=== PATIENT | male | born 1950 | race Hispanic/Latino ===

== ENCOUNTER → 2018-08-22 | Outpatient (CLI) | payer BC ==
[~2018-08-22] MED LIST: ACET250T28 PO; AEC81 PO; AMLO10TA7 PO; ATOR40TA71 PO; COLE1TAB2 PO; DIPH1TAB PO; DOXA2TAB2 PO; ELUX100T PO; FLUT15.88 NS; FURO20TA6 PO; FURO40TA5 PO; GLIP5TAB11 PO; INSLAN SQ; MECO10002 SL; MEGE40L PO; METF-446 PO; METO-408 PO; MULT-1203 PO; ONDA4TAB9 PO; PIND10TA2 PO; POTA99TA21 PO; Prasugrel Hcl PO
== END | disposition home or self-care (01) ==
LOC: RAH 13:10
PROVIDERS: ATTEND Internal Medicine
DX: R09.89 Other specified symptoms and signs involving the circulatory and respiratory systems (principal)
CPT/HCPCS: 93880

== ENCOUNTER → 2019-05-22 | Outpatient (CLI) | payer MEDICARE ==
[~2019-05-22] MED LIST changes: +AMLO2.5T4 PO; +CLON0.1T PO; +FLUT15.845 NS; -FLUT15.88 NS; +HYDR-4154 PO; +LABE200T5 PO; +MINO2.5T3 PO; +OLME40TA18 PO; +ONDA-104 PO; -ONDA4TAB9 PO
== END | disposition home or self-care (01) ==
LOC: RAH 16:37
PROVIDERS: ATTEND Internal Medicine
DX: M47.814 Spondylosis without myelopathy or radiculopathy, thoracic region (principal); M47.817 Spondylosis without myelopathy or radiculopathy, lumbosacral region; M41.87 Other forms of scoliosis, lumbosacral region; M43.17 Spondylolisthesis, lumbosacral region
CPT/HCPCS: 72070; 72100

== ENCOUNTER 2019-05-25 16:31 | Inpatient (IN) | payer MEDICARE ==
[~2019-05-25] VITALS: Ht 172.7 cm; Wt 112.1 kg
[~2019-05-25 16:31] MED LIST changes: -AMLO2.5T4 PO; -CLON0.1T PO; -HYDR-4154 PO; -LABE200T5 PO; -MINO2.5T3 PO; -OLME40TA18 PO
[2019-05-25 17:29] LABS: HEMATOCRIT 31.7 % (42-54); LYMPHOCYTES % (AUTO) 16.8 % (21.0-51.0); MEAN CORPUSCULAR HEMOGLOBIN 28.4 pg (27.0-33.0); MEAN CORPUSCULAR HGB CONC 32.8 g/dL (32.0-36.0); MEAN CORPUSCULAR VOLUME 86.6 fL (79-99); MONOCYTES % (AUTO) 4.5 % (3.0-13.0); NEUTROPHILS % (AUTO) 76.5 % (40.0-77.0); PLATELET COUNT (AUTO) 258 K/uL (130-400); RED BLOOD CELL COUNT(AUTO) 3.66 MIL/uL (4.50-6.20); RED CELL DISTRIBUTION WIDTH 14.8 % (11.0-15.5); WHITE BLOOD COUNT (AUTO) 5.1 K/uL (4.8-10.8)
[2019-05-25 17:47] LABS: CREATININE 1.1 mg/dL (0.5-1.5); POTASSIUM 3.8 mmol/L (3.5-5.1)
[2019-05-25 17:50] LABS: PARTIAL THROMBOPLASTIN TIME 27.1 SEC (26.3-35.5); PROTHROMBIN TIME 10.5 SEC (9.6-11.6)
[2019-05-25 17:52] LABS: ALBUMIN 3.2 g/dL (3.5-5.0); BILIRUBIN,TOTAL 0.3 mg/dL (0.2-1.0); TOTAL PROTEIN, SERUM 6.7 g/dL (6.0-8.3)
[2019-05-25] MEDS ORDERED: IOHEXOL-350 75 ML VIAL IV ONE (18:01)
[2019-05-25 18:57] LABS: APPEARANCE,URINE Clear (CLEAR); BILIRUBIN,URINE Negative (NEGATIVE); COLOR,URINE Yellow (YELLOW); GLUCOSE, URINE (UA) 500 mg/dL (NEGATIVE); KETONES,URINE Negative (NEGATIVE); LEUKOCYTE ESTERASE ,URINE Negative (NEGATIVE); NITRATE,URINE Negative (NEGATIVE); OCCULT BLOOD,URINE Negative (NEGATIVE); PH,URINE 7.5 (5.0-8.0); PROTEIN,URINE POS 1+ mg/dL (NEGATIVE)
[2019-05-25 19:45] LABS: BACTERIA,URINE Few /HPF (None Seen); MUCUS,URINE Few LPF (None Seen); SQUAMOUS EPITHELIAL CELL,UR 0-2 /HPF (0-2)
[2019-05-25] MEDS ORDERED: KETOROLAC TROMETHAMINE 15MG/ML ONE (19:49)
[2019-05-25] MEDS ORDERED: NITROGLYCERIN 1GM/1 INCH PACKET TD ONE (20:12)
[2019-05-25] MEDS ORDERED: ASPIRIN 325 MG TABLET ONE (20:12)
[2019-05-25] MEDS ORDERED: ONDANSETRON HCL 4 MG/2 ML VIAL IVP PRN (21:15)
[2019-05-25] MEDS ORDERED: NITROGLYCERIN 0.4 MG SL TAB SL PRN (21:15)
[2019-05-25] MEDS: SODIUM CHLORIDE 0.9% 1000ML 1,000 ML IV SCH (21:30)
[2019-05-25] MEDS ORDERED: SODIUM CHLORIDE 0.9% 1000ML 1,000 ML IV ONE (21:41)
[2019-05-25] MEDS ORDERED: MORPHINE SULFATE 2 MG/ML 1ML SYG ONE (22:07)
[2019-05-25 22:30] VITALS: BP 190/92
[2019-05-26] VITALS (7 sets, daily range): BP systolic 127–188; BP diastolic 67–94
[2019-05-26] MEDS: HYDRALAZINE HCL 20 MG/ML VIAL IV PRN ×2 (00:28→07:30)
[2019-05-26] MEDS: MORPHINE SULFATE 2 MG/ML 1ML SYG IVP PRN ×4 (04:15→20:31)
[2019-05-26 05:16] LABS: BASOPHILS % (AUTO) 0.5 % (0.0-5.0); EOSINOPHILS % (AUTO) 0.2 % (0.0-8.0); HEMATOCRIT 30.1 % (42-54); LYMPHOCYTES % (AUTO) 20.9 % (21.0-51.0); MEAN CORPUSCULAR HEMOGLOBIN 28.8 pg (27.0-33.0); MEAN CORPUSCULAR HGB CONC 33.6 g/dL (32.0-36.0); MEAN CORPUSCULAR VOLUME 85.8 fL (79-99); MONOCYTES % (AUTO) 6.4 % (3.0-13.0); NEUTROPHILS % (AUTO) 71.7 % (40.0-77.0); PLATELET COUNT (AUTO) 258 K/uL (130-400); RED BLOOD CELL COUNT(AUTO) 3.51 MIL/uL (4.50-6.20); RED CELL DISTRIBUTION WIDTH 14.8 % (11.0-15.5); WHITE BLOOD COUNT (AUTO) 6.1 K/uL (4.8-10.8)
[2019-05-26 05:25] LABS: HEMOGLOBIN A1C 7.5 % (4.0-6.0)
[2019-05-26 06:03] LABS: ALBUMIN 2.9 g/dL (3.5-5.0); BILIRUBIN,TOTAL 0.4 mg/dL (0.2-1.0); POTASSIUM 3.4 mmol/L (3.5-5.1); THYROID STIMULATING HORMONE 0.5 uIU/mL (0.36-3.74); TOTAL PROTEIN, SERUM 6.1 g/dL (6.0-8.3)
[2019-05-26] MEDS: INSULIN HUMULIN R 100 UNIT/ML 3ML SQ SCH ×4 (07:30→21:00)
[2019-05-26] MEDS ORDERED: ACETAMINOPHEN 325 MG TAB PO PRN (08:00)
[2019-05-26] MEDS: FAMOTIDINE/PF 20 MG/2 ML VIAL IV SCH ×2 (08:45→20:30)
[2019-05-26] MEDS: ENOXAPARIN SODIUM 30 MG/0.3 ML SQ SCH (08:46)
[2019-05-26] MEDS ORDERED: FAMOTIDINE/PF 20 MG/2 ML VIAL IV SCH (09:00)
[2019-05-26] MEDS ORDERED: ASPIRIN 81MG TAB.CHEW PO SCH (09:00)
[2019-05-26] MEDS ORDERED: AMLODIPINE BESYLATE 5 MG TAB PO SCH (10:00)
--- NOTE | 2019-05-26 10:15 | NUR ---
i have given pt amlodpine 10mg for bp of 201/98; i spoke to dr willis and showed him pt's home med list and he gave me verbal order for the amlodpine;
[2019-05-26] MEDS ORDERED: AMLO2.5T4 PO (10:18)
[2019-05-26] MEDS ORDERED: OLME40TA18 PO (10:18)
[2019-05-26] MEDS ORDERED: HYDR-4154 PO (10:18)
[2019-05-26] MEDS ORDERED: LABE200T5 PO (10:18)
[2019-05-26] MEDS ORDERED: MINO2.5T3 PO (10:18)
[2019-05-26] MEDS ORDERED: CLON0.1T PO (10:21)
--- NOTE | 2019-05-26 10:26 | NUR ---
pt's here now with home med information; i have gone through the list of home meds and updated it with his current home med information.
[2019-05-26] MEDS ORDERED: LIDOCAINE HCL-MPF 1% 2ML VIAL IV PRN (11:00)
[2019-05-26] MEDS ORDERED: POTASSIUM CHLORIDE 10% ELIXIR 20 MEQ/15 ML UDCUP PO PRN (11:00)
[2019-05-26] MEDS ORDERED: POTASSIUM CHLORIDE 20MEQ/100ML 100 ML IV PRN (11:00)
[2019-05-26] MEDS ORDERED: LORAZEPAM 2 MG/ML 1 ML VIAL IVP SCH (11:15)
[2019-05-26] MEDS: HYDRALAZINE HCL 25 MG TABLET PO SCH ×2 (12:52→20:31)
--- NOTE | 2019-05-26 12:52 | NUR ---
pt's bp 190/95, pt took his own home meds for his bp; will recheck in an hour
[2019-05-26] MEDS: FLUTICASONE PROPIONATE 50MCG/SPRAY 16 GM BOTTLE EN SCH (14:00)
[2019-05-26] MEDS: POTASSIUM CHLORIDE 20 MEQ ERTAB PO PRN (16:51)
--- NOTE | 2019-05-26 17:34 | NUR ---
Initial Assessment Patient lives with spouse. No home services. DME: BPM, glucometer (no insulin), cane, CPAP. Patient is able to complete ADL's independently and drives. PCP is Dr. Herrera. [facility]acy is [facility] in [place]. DCP is home Addendum: 05/26/19 at 1739 by HOA GALLEGOS SS Amended: Links added.
[2019-05-26] MEDS: MINOXIDIL 2.5 MG TAB PO SCH (20:31)
[2019-05-26] MEDS: AMLODIPINE BESYLATE 2.5 MG TAB PO SCH (20:31)
[2019-05-26] MEDS: ATORVASTATIN CALCIUM 40 MG TABLET PO SCH (20:31)
[2019-05-27 00:08] VITALS: BP 147/69
[2019-05-27] MEDS: SODIUM CHLORIDE 0.9% 1000ML 1,000 ML IV SCH ×2 (01:07→13:30)
[2019-05-27] MEDS: MORPHINE SULFATE 2 MG/ML 1ML SYG IVP PRN ×5 (01:08→22:34)
[2019-05-27 03:48] LABS: BASOPHILS % (AUTO) 1.3 % (0.0-5.0); EOSINOPHILS % (AUTO) 2.1 % (0.0-8.0); HEMATOCRIT 29.9 % (42-54); LYMPHOCYTES % (AUTO) 24.4 % (21.0-51.0); MEAN CORPUSCULAR HEMOGLOBIN 28.6 pg (27.0-33.0); MEAN CORPUSCULAR HGB CONC 32.8 g/dL (32.0-36.0); MEAN CORPUSCULAR VOLUME 87.2 fL (79-99); MONOCYTES % (AUTO) 8.4 % (3.0-13.0); NEUTROPHILS % (AUTO) 63.4 % (40.0-77.0); PLATELET COUNT (AUTO) 220 K/uL (130-400); RED BLOOD CELL COUNT(AUTO) 3.43 MIL/uL (4.50-6.20); RED CELL DISTRIBUTION WIDTH 14.7 % (11.0-15.5); WHITE BLOOD COUNT (AUTO) 5.4 K/uL (4.8-10.8)
[2019-05-27 04:08] VITALS: BP 149/71
[2019-05-27 04:27] LABS: POTASSIUM 3.3 mmol/L (3.5-5.1)
[2019-05-27] MEDS: POTASSIUM CHLORIDE 20 MEQ ERTAB PO PRN ×2 (04:36→08:47)
[2019-05-27] MEDS: INSULIN HUMULIN R 100 UNIT/ML 3ML SQ SCH ×4 (05:37→20:43)
[2019-05-27 07:42] VITALS: BP 179/79
[2019-05-27] MEDS: ENOXAPARIN SODIUM 30 MG/0.3 ML SQ SCH (08:44)
[2019-05-27] MEDS: FAMOTIDINE/PF 20 MG/2 ML VIAL IV SCH ×2 (08:44→20:49)
[2019-05-27] MEDS: MULTIVITAMIN TABLET PO SCH (08:45)
[2019-05-27] MEDS: ASPIRIN 81 MG EC TAB PO SCH (08:45)
[2019-05-27] MEDS: AMLODIPINE BESYLATE 2.5 MG TAB PO SCH ×2 (08:45→20:50)
[2019-05-27] MEDS: ATORVASTATIN CALCIUM 40 MG TABLET PO SCH ×2 (08:45→20:50)
[2019-05-27] MEDS: DOXAZOSIN MESYLATE 2 MG TABLET PO SCH (08:46)
[2019-05-27] MEDS: HYDRALAZINE HCL 25 MG TABLET PO SCH ×3 (08:46→20:50)
[2019-05-27] MEDS: FLUTICASONE PROPIONATE 50MCG/SPRAY 16 GM BOTTLE EN SCH (08:56)
[2019-05-27] MEDS: MINOXIDIL 2.5 MG TAB PO SCH ×2 (08:56→20:50)
[2019-05-27] MEDS ORDERED: LABETALOL HCL 200 MG TABLET PO SCH ×3 (09:00→21:00)
[2019-05-27 11:12] VITALS: BP 133/66
--- NOTE | 2019-05-27 13:04 | NUR ---
I HAVE SPOKEN TO DR OVIEDO ON THE PHONE AND INFORMED OF PT GOING INTO A-FIB, ORDERS RECEIVED TO INCREASE HIS LABETOLOL TO BID AND GIVE A NOW DOSE.
[2019-05-27] MEDS: TRAMADOL HCL 50 MG TABLET PO PRN (15:19)
[2019-05-27 16:09] VITALS: BP 115/52
[2019-05-27] MEDS ORDERED: MAGNESIUM HYDROXIDE 30 ML/UDCUP PO PRN (17:00)
--- NOTE | 2019-05-27 18:45 | NUR ---
IT WAS REPORTED TO ME THAT PT HAD A 12 SEC. PAUSE, I WENT TO ROOM AND PT DID SAY HE HAD FELT LIGHT HEADED, I DID A PAUL PULSE RATE AND HEART RATE WAS 50; DR MCKNIGHT WAS ON THE FLOOR ROUNDING AND I SPOKE TO HIM AND SHOWED HIM TELE STRIP; HE TALKED TO PATIENT THEN STATED TO GO AHEAD AND TRANSFER PT TO ICU AND HAVE AN EXTERNAL PACER PLACED ON PATIENT; ELEVATOR REPAIR MECHANIC WAS CALLED AND SHE STATED THERE WAS SOME PT'S MOVING OUT OF UNIT INTO PCCU AND SHE WOULD THEN MOVE THE PATIENT TO ICU; I HAVE GIVEN REPORT TO NIGHT NURSE HOUSTON AND HE IS GOING TO FOLLOW UP ON THIS.
[2019-05-27 20:12] VITALS: BP 142/67
[2019-05-27] MEDS: DOCUSATE SODIUM 100 MG CAP PO SCH (20:50)
[2019-05-27] MEDS: SENNOSIDES 8.6 MG TABLET PO SCH (20:51)
[2019-05-28] VITALS (23 sets, daily range): BP systolic 136–184; BP diastolic 57–94
--- NOTE | 2019-05-28 03:45 | NUR ---
TRANSFER PATIENT TRANSFERRED TO ROOM 216 IN ICU PER MD ORDERS REPORT GIVEN TO ZOEY RINCON. ALL BELONGINGS AND PAPER WORK TAKEN WITH PATIENT.
[2019-05-28] MEDS: SODIUM CHLORIDE 0.9% 1000ML 1,000 ML IV SCH (03:50)
--- NOTE | 2019-05-28 03:51 | NUR ---
RECEIVED FROM ROOM 401 VIA BED. AA&OX3. NO DISTRESS NOTED. DENIES PAIN AND DISCOMFORT AT THIS TIME. DENIES DIZZINESS. INITIATED BEDSIDE MONITORING SINUS BRADYCARDIA WITH HEART RATE 59 BPM. NS 50ML/HR INFUSING WELL VIA PIV RIGHT ARM. BILATERAL LOWER EXTREMITIES WITH SCD'S. INSTRUCTED ON PLAN OF CARE. FIELD RESEARCH ASSISTANT HERE FOR VENIPUNCTURE BLOOD SAMPLE FOR AM LABS ORDERED.
[2019-05-28 04:01] LABS: BASOPHILS % (AUTO) 1.1 % (0.0-5.0); LYMPHOCYTES % (AUTO) 23.6 % (21.0-51.0); MEAN CORPUSCULAR HEMOGLOBIN 28.2 pg (27.0-33.0); MEAN CORPUSCULAR HGB CONC 32.3 g/dL (32.0-36.0); MEAN CORPUSCULAR VOLUME 87.2 fL (79-99); MONOCYTES % (AUTO) 8.2 % (3.0-13.0); NEUTROPHILS % (AUTO) 63.7 % (40.0-77.0); PLATELET COUNT (AUTO) 220 K/uL (130-400); RED BLOOD CELL COUNT(AUTO) 3.44 MIL/uL (4.50-6.20); RED CELL DISTRIBUTION WIDTH 14.6 % (11.0-15.5); WHITE BLOOD COUNT (AUTO) 5.3 K/uL (4.8-10.8)
[2019-05-28 04:22] LABS: POTASSIUM 3.6 mmol/L (3.5-5.1)
[2019-05-28] MEDS: MORPHINE SULFATE 2 MG/ML 1ML SYG IVP PRN ×4 (04:42→20:40)
[2019-05-28] MEDS: POTASSIUM CHLORIDE 20 MEQ ERTAB PO PRN ×2 (04:50→09:20)
[2019-05-28] MEDS: HYDRALAZINE HCL 20 MG/ML VIAL IV PRN ×3 (06:20→23:50)
[2019-05-28] MEDS: INSULIN HUMULIN R 100 UNIT/ML 3ML SQ SCH ×4 (06:21→21:00)
[2019-05-28] MEDS: TRAMADOL HCL 50 MG TABLET PO PRN ×2 (06:37→16:55)
[2019-05-28] MEDS: MULTIVITAMIN TABLET PO SCH (08:26)
[2019-05-28] MEDS: DOXAZOSIN MESYLATE 2 MG TABLET PO SCH (08:26)
[2019-05-28] MEDS: AMLODIPINE BESYLATE 2.5 MG TAB PO SCH ×2 (08:26→20:46)
[2019-05-28] MEDS: SENNOSIDES 8.6 MG TABLET PO SCH ×2 (08:27→20:41)
[2019-05-28] MEDS: HYDRALAZINE HCL 25 MG TABLET PO SCH ×3 (08:27→20:46)
[2019-05-28] MEDS: ATORVASTATIN CALCIUM 40 MG TABLET PO SCH ×2 (08:27→20:41)
[2019-05-28] MEDS: DOCUSATE SODIUM 100 MG CAP PO SCH ×2 (08:27→20:41)
[2019-05-28] MEDS: ASPIRIN 81 MG EC TAB PO SCH (08:28)
[2019-05-28] MEDS: FAMOTIDINE/PF 20 MG/2 ML VIAL IV SCH ×2 (08:28→20:41)
[2019-05-28] MEDS: ENOXAPARIN SODIUM 30 MG/0.3 ML SQ SCH (08:38)
[2019-05-28] MEDS: MINOXIDIL 2.5 MG TAB PO SCH ×2 (08:39→20:51)
[2019-05-28] MEDS: CLONIDINE HCL 0.1 MG TABLET PO PRN (09:30)
[2019-05-28] MEDS: FLUTICASONE PROPIONATE 50MCG/SPRAY 16 GM BOTTLE EN SCH (09:39)
[2019-05-28] MEDS ORDERED: APIXABAN 5 MG TABLET PO SCH (21:00)
[2019-05-28] MEDS ORDERED: HYDROMORPHONE 1 MG/1 ML AMP IVP ONE (23:00)
[2019-05-29] VITALS (44 sets, daily range): BP systolic 118–196; BP diastolic 45–108
[2019-05-29] MEDS: SODIUM CHLORIDE 0.9% 1000ML 1,000 ML IV SCH ×2 (01:11→16:41)
[2019-05-29] MEDS: CLONIDINE HCL 0.1 MG TABLET PO PRN (01:50)
[2019-05-29 04:53] LABS: BASOPHILS % (AUTO) 0.8 % (0.0-5.0); EOSINOPHILS % (AUTO) 2.7 % (0.0-8.0); HEMATOCRIT 31.6 % (42-54); LYMPHOCYTES % (AUTO) 17.1 % (21.0-51.0); MEAN CORPUSCULAR HEMOGLOBIN 28.3 pg (27.0-33.0); MEAN CORPUSCULAR HGB CONC 32.3 g/dL (32.0-36.0); MEAN CORPUSCULAR VOLUME 87.5 fL (79-99); MONOCYTES % (AUTO) 8.7 % (3.0-13.0); NEUTROPHILS % (AUTO) 70.2 % (40.0-77.0); PLATELET COUNT (AUTO) 224 K/uL (130-400); RED BLOOD CELL COUNT(AUTO) 3.61 MIL/uL (4.50-6.20); RED CELL DISTRIBUTION WIDTH 14.5 % (11.0-15.5); WHITE BLOOD COUNT (AUTO) 6.6 K/uL (4.8-10.8)
[2019-05-29 05:25] LABS: CARBON DIOXIDE 28 mmol/L (21-32); CHLORIDE 104 mmol/L (101-111); CREATININE 0.8 mg/dL (0.5-1.5); GLOMERULAR FILTR. RATE CALC 102 mL/min (>60); GLUCOSE,RANDOM 118 mg/dL (70-105); PHOSPHORUS 3.3 mg/dL (2.5-4.9); POTASSIUM 4.2 mmol/L (3.5-5.1); SODIUM SERUM 139 mmol/L (136-145); THYROID STIMULATING HORMONE 2.06 uIU/mL (0.36-3.74); UREA NITROGEN, BLOOD 16 mg/dL (7-18)
[2019-05-29] MEDS: MORPHINE SULFATE 2 MG/ML 1ML SYG IVP PRN ×2 (05:28→08:48)
[2019-05-29] MEDS ORDERED: NITROGLYCERIN 50 MG/D5% WATER 250 BOT IV SCH (05:30)
[2019-05-29] MEDS: INSULIN HUMULIN R 100 UNIT/ML 3ML SQ SCH ×4 (06:11→21:12)
[2019-05-29] MEDS: LUBIPROSTONE 24 MCG CAP PO SCH ×2 (08:32→16:40)
[2019-05-29] MEDS: ASPIRIN 81 MG EC TAB PO SCH (08:32)
[2019-05-29] MEDS: HYDRALAZINE HCL 25 MG TABLET PO SCH ×3 (08:32→21:15)
[2019-05-29] MEDS: AMLODIPINE BESYLATE 2.5 MG TAB PO SCH ×2 (08:32→20:17)
[2019-05-29] MEDS: FAMOTIDINE/PF 20 MG/2 ML VIAL IV SCH ×2 (08:33→20:15)
[2019-05-29] MEDS: DOXAZOSIN MESYLATE 2 MG TABLET PO SCH (08:33)
[2019-05-29] MEDS: SENNOSIDES 8.6 MG TABLET PO SCH ×2 (08:33→20:13)
[2019-05-29] MEDS: MINOXIDIL 2.5 MG TAB PO SCH ×2 (08:33→20:17)
[2019-05-29] MEDS: DOCUSATE SODIUM 100 MG CAP PO SCH ×2 (08:33→20:13)
[2019-05-29] MEDS: ATORVASTATIN CALCIUM 40 MG TABLET PO SCH ×2 (08:33→20:13)
[2019-05-29] MEDS: MULTIVITAMIN TABLET PO SCH (08:33)
[2019-05-29] MEDS: FLUTICASONE PROPIONATE 50MCG/SPRAY 16 GM BOTTLE EN SCH (08:37)
[2019-05-29] MEDS ORDERED: VANCOMYCIN 500MG+NS 100ML 100 ML IV SCH (09:45)
[2019-05-29] MEDS ORDERED: HYDROMORPHONE 1 MG/1 ML AMP IVP SCH (10:15)
[2019-05-29] MEDS ORDERED: VANCOMYCIN 1.5 GM in SODIUM CHLORIDE 0.9% 250 ML IV SCH (10:29)
[2019-05-29] MEDS: PREGABALIN 75 MG CAPSULE PO SCH ×3 (10:31→21:16)
[2019-05-29] MEDS: DEXAMETHASONE SOD PHOSPHATE 4 MG/ML 1ML VIAL IVP SCH ×3 (10:31→22:36)
[2019-05-29] MEDS: BACLOFEN 10 MG TABLET PO SCH ×3 (10:31→21:16)
[2019-05-29] MEDS ORDERED: COMPOUND IV REFRIGERATED 1 EACH IVSOLN MISC PRN (10:45)
--- NOTE | 2019-05-29 11:00 | NUR ---
Dr Hernandez notified at this time that patient is wanting a second opinion before getting PPM; plan of care discussed with patient; orders for PPM today will be cancelled. Dr Okeefe also notified of patient's desire for second opinion on PPM insertion.
[2019-05-29] MEDS: LIDOCAINE 5% TOPICAL PATCH TP SCH (11:45)
[2019-05-29] MEDS: HYDRALAZINE HCL 20 MG/ML VIAL IV PRN (13:51)
--- NOTE | 2019-05-29 17:15 | NUR ---
Patient having heart rate in low 100s; asymptomatic, no fever, no pain at this time; reported to Dr Okeefe, who stated he would come in later to check on patient.
[2019-05-29] MEDS: HYDROCODONE/ACETAMINOPHEN 5/325 MG TAB PO PRN (17:43)
[2019-05-30] VITALS (26 sets, daily range): BP systolic 91–173; BP diastolic 33–92
[2019-05-30] MEDS: DEXAMETHASONE SOD PHOSPHATE 4 MG/ML 1ML VIAL IVP SCH ×3 (05:55→21:30)
[2019-05-30] MEDS: INSULIN HUMULIN R 100 UNIT/ML 3ML SQ SCH ×4 (06:16→21:33)
--- NOTE | 2019-05-30 07:00 | NUR ---
PATIENT RECEIVED IN BED, AAOX3, NO ACUTE DISTRESS NOTED. PER REPORT, PATIENT IS WANTING TO GET A SECOND OPINION IN REGARDS TO HAVING A PACEMAKER PER DR. MIXON'S RECOMMENDATIONS. TELE WITH SR 80. INSTRUCTED TO CALL FOR ASSISTANCE IF NEEDED, VOICED UNDERSTANDING. CALL PANCHAL IS WITHIN REACH, WILL CONT TO MONITOR CLOSELY.
--- NOTE | 2019-05-30 08:24 | NUR ---
MD ROUNDS DR. OVIEDO IN TO SEE PATIENT. MD SPOKE WITH PATIENT. NEW ORDERS RECEIVED TO BE CARRIED OUT. POSSIBLE DISCHARGE TODAY. FOLLOW UP ORDERS GIVEN BY DR. OVIEDO. WILL AWAIT FOR PRIMARY MD TO EVALUATE PATIENT.
[2019-05-30] MEDS: ASPIRIN 81 MG EC TAB PO SCH (08:38)
[2019-05-30] MEDS: DOXAZOSIN MESYLATE 2 MG TABLET PO SCH (08:38)
[2019-05-30] MEDS: MULTIVITAMIN TABLET PO SCH (08:38)
[2019-05-30] MEDS: HYDRALAZINE HCL 25 MG TABLET PO SCH ×2 (08:38→13:57)
[2019-05-30] MEDS: LUBIPROSTONE 24 MCG CAP PO SCH ×2 (08:38→15:56)
[2019-05-30] MEDS: DOCUSATE SODIUM 100 MG CAP PO SCH ×2 (08:39→21:25)
[2019-05-30] MEDS: SENNOSIDES 8.6 MG TABLET PO SCH ×2 (08:39→21:25)
[2019-05-30] MEDS: PREGABALIN 75 MG CAPSULE PO SCH ×3 (08:39→21:25)
[2019-05-30] MEDS: BACLOFEN 10 MG TABLET PO SCH ×3 (08:39→21:26)
[2019-05-30] MEDS: AMLODIPINE BESYLATE 2.5 MG TAB PO SCH ×2 (08:39→23:22)
[2019-05-30] MEDS: ATORVASTATIN CALCIUM 40 MG TABLET PO SCH ×2 (08:39→21:26)
[2019-05-30] MEDS: MINOXIDIL 2.5 MG TAB PO SCH ×3 (08:39→21:00)
[2019-05-30] MEDS: FAMOTIDINE/PF 20 MG/2 ML VIAL IV SCH ×2 (09:34→21:27)
[2019-05-30] MEDS: HYDROCODONE/ACETAMINOPHEN 5/325 MG TAB PO PRN (09:38)
[2019-05-30] MEDS: LIDOCAINE 5% TOPICAL PATCH TP SCH (11:42)
--- NOTE | 2019-05-30 14:10 | NUR ---
Nutrition Intervention: Nutrition screen based on LOS x 5 days. Pt. on 75gm CCD diet with fair p.o. intake. Pt. states needs smaller meals daily due to Hx of Gastric sleeve. Labs reviewed(BG 106, HgbA1c 7.5%, Alb 2.9). SR-18, elastic. LBM: 05/29/2019. BMI: 36.8, Obesity Grade 2. Pt. educated on Diabetic diet and provided with education material. Pt. verbalized understanding. Recommendations: 1) Rec. 6 small meals 75gm CCD Heart Healthy diet. 2) Diabetic diet education given to patient. 3) Continue to monitor pt's nutritional status. 4) Consult RD as nutrition concerns arise. Addendum: 05/30/19 at [address] Amended: Links added. Addendum: 05/30/19 at [address] Nutrition Intervention: Nutrition screen based on LOS x 5 days. Pt. on 75gm CCD diet with fair p.o. intake. Pt. states needs smaller meals daily due to Hx of Gastric sleeve. Spoke with pt. regarding nutritional supplementation and pt. agreed to try. Labs reviewed(BG 106, HgbA1c 7.5%, Alb 2.9). SR-18, elastic. LBM: 05/29/2019. BMI: 36.8, Obesity Grade 2. Pt. educated on Diabetic diet and provided with education material. Pt. verbalized understanding. Recommendations: 1) Rec. 6 small meals 75gm CCD Heart Healthy diet. 2) Rec. Glucerna supp. QD with dinner meal. 3) Diabetic diet education given to patient. 4) Continue to monitor pt's nutritional status. 5) Consult RD as nutrition concerns arise.
[2019-05-30] MEDS: FLUTICASONE PROPIONATE 50MCG/SPRAY 16 GM BOTTLE EN SCH (21:43)
[2019-05-31] VITALS (17 sets, daily range): BP systolic 94–154; BP diastolic 44–75
[2019-05-31] MEDS: HYDRALAZINE HCL 25 MG TABLET PO SCH ×4 (00:30→20:49)
[2019-05-31 04:52] LABS: HEMATOCRIT 29.6 % (42-54); LYMPHOCYTES % (AUTO) 7.8 % (21.0-51.0); MEAN CORPUSCULAR HEMOGLOBIN 28.7 pg (27.0-33.0); MEAN CORPUSCULAR HGB CONC 33.4 g/dL (32.0-36.0); MEAN CORPUSCULAR VOLUME 85.8 fL (79-99); NEUTROPHILS % (AUTO) 86.8 % (40.0-77.0); PLATELET COUNT (AUTO) 259 K/uL (130-400); RED BLOOD CELL COUNT(AUTO) 3.45 MIL/uL (4.50-6.20); RED CELL DISTRIBUTION WIDTH 14.8 % (11.0-15.5); WHITE BLOOD COUNT (AUTO) 8.1 K/uL (4.8-10.8)
[2019-05-31] MEDS: HYDROCODONE/ACETAMINOPHEN 5/325 MG TAB PO PRN ×3 (04:52→17:57)
[2019-05-31 05:10] LABS: B-TYPE NATRIURETIC PEPTIDE 16 pg/mL (0-100); CREATININE 1.6 mg/dL (0.5-1.5); MAGNESIUM 2.1 mg/dL (1.80-2.40); POTASSIUM 4.3 mmol/L (3.5-5.1)
[2019-05-31] MEDS: DEXAMETHASONE SOD PHOSPHATE 4 MG/ML 1ML VIAL IVP SCH ×3 (06:06→22:00)
[2019-05-31] MEDS: INSULIN HUMULIN R 100 UNIT/ML 3ML SQ SCH ×4 (06:38→22:00)
[2019-05-31] MEDS: FAMOTIDINE/PF 20 MG/2 ML VIAL IV SCH ×2 (08:06→20:49)
[2019-05-31] MEDS: ASPIRIN 81 MG EC TAB PO SCH (08:07)
[2019-05-31] MEDS: PREGABALIN 75 MG CAPSULE PO SCH ×3 (08:07→20:49)
[2019-05-31] MEDS: MINOXIDIL 2.5 MG TAB PO SCH ×2 (08:08→20:50)
[2019-05-31] MEDS: SENNOSIDES 8.6 MG TABLET PO SCH ×2 (08:08→20:48)
[2019-05-31] MEDS: BACLOFEN 10 MG TABLET PO SCH ×3 (08:08→20:49)
[2019-05-31] MEDS: MULTIVITAMIN TABLET PO SCH (08:08)
[2019-05-31] MEDS: DOCUSATE SODIUM 100 MG CAP PO SCH ×2 (08:08→20:48)
[2019-05-31] MEDS: ATORVASTATIN CALCIUM 40 MG TABLET PO SCH ×2 (08:09→20:49)
[2019-05-31] MEDS: DOXAZOSIN MESYLATE 2 MG TABLET PO SCH (08:09)
--- NOTE | 2019-05-31 08:19 | NUR ---
PT RECEIVED IN BED AAOX3, NO ACUTE DISTRESS NOTED. TELE WITH SR 80. POC DISCUSSED WITH PATIENT. PLAN FOR POSSIBLE DISCHARGE TODAY. DURING MORNING MEDICATIONS, PATIENT STATES HE WILL TAKE MINOXIDIL 2.5 MG PO AND NOT THE 10 MG PRESCRIBED YESTERDAY BY DR. OVIEDO. I INSTRUCTED HIM HIS BLOOD PRESSURE WAS IN THE 178 SYSTOLIC YESTERDAY AND TODAY IT IS 130s SYSTOLIC AFTER STARTING THE 10 MG DOSE. PRIMARY MD TO BE MADE AWARE. WILL CONT TO MONITOR CLOSELY. CALL PANCHAL IS WITHIN REACH.
[2019-05-31] MEDS: FLUTICASONE PROPIONATE 50MCG/SPRAY 16 GM BOTTLE EN SCH (09:00)
[2019-05-31] MEDS: AMLODIPINE BESYLATE 2.5 MG TAB PO SCH ×2 (09:01→20:49)
[2019-05-31] MEDS: LUBIPROSTONE 24 MCG CAP PO SCH ×2 (09:02→16:49)
--- NOTE | 2019-05-31 12:33 | NUR ---
MD ROUNDS DR. ZENDEJAS IN TO SEE PATIENT. MD SPOKE WITH PATIENT REGARDING BACK PAIN. I INFORMED DR. ZENDEJAS PT ONLY TOOK 2.5MG OF MINOXIDIL THIS AM. PER DR. ZENDEJAS, INSTRUCTED TO NOTIFY DR. OVIEDO. PT HAS BEEN DOWNGRADED TO PCCU STATUS.
--- NOTE | 2019-05-31 14:42 | NUR ---
SPOKE WITH DR. OVIEDO, INFORMED HIM PATIENT DOES NOT WANT TO TAKE THE FULL PRESCRIBED DOSE OF MINOXIDIL 10 MG PO. INSTEAD HE TOOK MINOXIDIL 2.5 MG PO. INFORMED PATIENT HAS NOT YET BEEN DISCHARGED. INSTRUCTED TO NOTIFY DR. MARK BRAVO IF PATIENT REMAINS IN HOSPITAL ON SUNDAY. INSTRUCTED TO HAVE PATIENT SIGN REFUSAL FORM FOR MINOXIDIL.
[2019-05-31] MEDS: LIDOCAINE 5% TOPICAL PATCH TP SCH (15:41)
--- NOTE | 2019-05-31 16:15 | NUR ---
PATIENT TRANSFERRED TO ROOM 224, SPOUSE COLLECTED ALL BELONGINGS. REPORT GIVEN TO RAIN RINCON.
[2019-05-31] MEDS ORDERED: HYDROCODONE/ACETAMINOPHEN 5/325 MG TAB PO PRN ×2 (21:15)
[2019-06-01] VITALS (7 sets, daily range): BP systolic 93–153; BP diastolic 54–68
[2019-06-01 04:36] LABS: HEMATOCRIT 28.4 % (42-54); MEAN CORPUSCULAR HEMOGLOBIN 28.2 pg (27.0-33.0); MEAN CORPUSCULAR HGB CONC 32.7 g/dL (32.0-36.0); MEAN CORPUSCULAR VOLUME 86.1 fL (79-99); PLATELET COUNT (AUTO) 248 K/uL (130-400); RED CELL DISTRIBUTION WIDTH 14.8 % (11.0-15.5); WHITE BLOOD COUNT (AUTO) 7.8 K/uL (4.8-10.8)
[2019-06-01 05:14] LABS: CREATININE 1.7 mg/dL (0.5-1.5); CRP QUANTITATIVE 4.3 mg/L (0.00-9.0); MAGNESIUM 2.2 mg/dL (1.80-2.40); PHOSPHORUS 3.9 mg/dL (2.5-4.9); POTASSIUM 3.8 mmol/L (3.5-5.1)
[2019-06-01 05:22] LABS: B-TYPE NATRIURETIC PEPTIDE 8 pg/mL (0-100)
[2019-06-01 05:36] LABS: ERYTHROCYTE SEDIMENTATION RATE 9 MM/HR (0-20)
[2019-06-01] MEDS: INSULIN HUMULIN R 100 UNIT/ML 3ML SQ SCH ×4 (06:19→21:00)
[2019-06-01] MEDS: DEXAMETHASONE SOD PHOSPHATE 4 MG/ML 1ML VIAL IVP SCH ×4 (06:19→22:30)
[2019-06-01] MEDS: LIDOCAINE 5% TOPICAL PATCH TP SCH (09:38)
[2019-06-01] MEDS: DOXAZOSIN MESYLATE 2 MG TABLET PO SCH (09:39)
[2019-06-01] MEDS: HYDRALAZINE HCL 25 MG TABLET PO SCH ×3 (09:42→20:31)
[2019-06-01] MEDS: ATORVASTATIN CALCIUM 40 MG TABLET PO SCH ×2 (09:43→20:30)
[2019-06-01] MEDS: MULTIVITAMIN TABLET PO SCH (09:43)
[2019-06-01] MEDS: ASPIRIN 81 MG EC TAB PO SCH (09:43)
[2019-06-01] MEDS: DOCUSATE SODIUM 100 MG CAP PO SCH ×2 (09:43→20:30)
[2019-06-01] MEDS: LUBIPROSTONE 24 MCG CAP PO SCH ×2 (09:43→18:08)
[2019-06-01] MEDS: AMLODIPINE BESYLATE 2.5 MG TAB PO SCH ×2 (09:44→20:31)
[2019-06-01] MEDS: PREGABALIN 75 MG CAPSULE PO SCH ×3 (09:44→20:30)
[2019-06-01] MEDS: SENNOSIDES 8.6 MG TABLET PO SCH ×2 (09:44→20:30)
[2019-06-01] MEDS: MINOXIDIL 2.5 MG TAB PO SCH ×2 (09:45→20:32)
[2019-06-01] MEDS: FAMOTIDINE/PF 20 MG/2 ML VIAL IV SCH ×2 (09:45→20:29)
[2019-06-01] MEDS: BACLOFEN 10 MG TABLET PO SCH ×4 (09:46→22:30)
[2019-06-01] MEDS: FLUTICASONE PROPIONATE 50MCG/SPRAY 16 GM BOTTLE EN SCH (09:46)
--- NOTE | 2019-06-01 15:04 | NUR ---
hydralazine held due to blood pressure being 93/55
[2019-06-02] VITALS (8 sets, daily range): BP systolic 10–156; BP diastolic 57–84
[2019-06-02 04:14] LABS: HEMATOCRIT 31.2 % (42-54); MEAN CORPUSCULAR HEMOGLOBIN 28.5 pg (27.0-33.0); MEAN CORPUSCULAR HGB CONC 33.3 g/dL (32.0-36.0); MEAN CORPUSCULAR VOLUME 85.5 fL (79-99); PLATELET COUNT (AUTO) 243 K/uL (130-400); RED BLOOD CELL COUNT(AUTO) 3.65 MIL/uL (4.50-6.20); RED CELL DISTRIBUTION WIDTH 14.5 % (11.0-15.5)
[2019-06-02 04:39] LABS: CREATININE 1.3 mg/dL (0.5-1.5); MAGNESIUM 2.3 mg/dL (1.80-2.40); PHOSPHORUS 3.5 mg/dL (2.5-4.9)
[2019-06-02 04:56] LABS: B-TYPE NATRIURETIC PEPTIDE 10 pg/mL (0-100)
[2019-06-02] MEDS: HYDROCODONE/ACETAMINOPHEN 5/325 MG TAB PO PRN ×2 (05:41→14:37)
[2019-06-02] MEDS: INSULIN HUMULIN R 100 UNIT/ML 3ML SQ SCH ×4 (05:59→22:19)
[2019-06-02] MEDS: DOCUSATE SODIUM 100 MG CAP PO SCH ×2 (08:31→22:04)
[2019-06-02] MEDS: SENNOSIDES 8.6 MG TABLET PO SCH ×2 (08:31→22:04)
[2019-06-02] MEDS: LUBIPROSTONE 24 MCG CAP PO SCH ×2 (08:31→16:51)
[2019-06-02] MEDS: ASPIRIN 81 MG EC TAB PO SCH (08:31)
[2019-06-02] MEDS: HYDRALAZINE HCL 25 MG TABLET PO SCH ×3 (08:32→22:04)
[2019-06-02] MEDS: MINOXIDIL 2.5 MG TAB PO SCH ×2 (08:32→23:02)
[2019-06-02] MEDS: BACLOFEN 10 MG TABLET PO SCH ×2 (08:32→22:03)
[2019-06-02] MEDS: ATORVASTATIN CALCIUM 40 MG TABLET PO SCH ×2 (08:32→22:03)
[2019-06-02] MEDS: AMLODIPINE BESYLATE 2.5 MG TAB PO SCH ×2 (08:32→22:04)
[2019-06-02] MEDS: PREGABALIN 75 MG CAPSULE PO SCH ×3 (08:32→22:05)
[2019-06-02] MEDS: MULTIVITAMIN TABLET PO SCH (08:32)
[2019-06-02] MEDS: DOXAZOSIN MESYLATE 2 MG TABLET PO SCH (08:33)
[2019-06-02] MEDS: FAMOTIDINE/PF 20 MG/2 ML VIAL IV SCH ×2 (08:34→22:05)
[2019-06-02] MEDS: DEXAMETHASONE SOD PHOSPHATE 4 MG/ML 1ML VIAL IVP SCH ×3 (08:34→22:05)
[2019-06-02] MEDS: FLUTICASONE PROPIONATE 50MCG/SPRAY 16 GM BOTTLE EN SCH (08:39)
[2019-06-02] MEDS: LIDOCAINE 5% TOPICAL PATCH TP SCH ×2 (09:00→14:36)
[2019-06-02] MEDS ORDERED: LACTULOSE 20 GM/30 ML UDCUP PO PRN (11:45)
[2019-06-02] MEDS ORDERED: LACTULOSE 20 GM/30 ML UDCUP ONE (12:31)
[2019-06-02] MEDS ORDERED: PHARMACY COMMUNICATION MISC SCH (13:00)
[2019-06-02 17:19] LABS: CREATININE,URINE RANDOM 68 mg/dL (30-135); SODIUM,URINE RANDOM 17 mmol/l (40-220)
--- NOTE | 2019-06-02 18:09 | NUR ---
PT. STATES HAD LARGE BOWEL MOVEMENT AFTER LACTULOSE ADMINISTRATION.
--- NOTE | 2019-06-02 20:00 | NUR ---
Pt alert, oriented, no signs of disterss, on room air.
[2019-06-03] VITALS (9 sets, daily range): BP systolic 93–153; BP diastolic 46–73
[2019-06-03] MEDS: HYDROCODONE/ACETAMINOPHEN 5/325 MG TAB PO PRN ×2 (02:30→09:23)
[2019-06-03 04:34] LABS: BASOPHILS % (AUTO) 0.2 % (0.0-5.0); EOSINOPHILS % (AUTO) 2.1 % (0.0-8.0); HEMATOCRIT 30.8 % (42-54); LYMPHOCYTES % (AUTO) 10.6 % (21.0-51.0); MEAN CORPUSCULAR HEMOGLOBIN 28.4 pg (27.0-33.0); MEAN CORPUSCULAR HGB CONC 33.4 g/dL (32.0-36.0); MEAN CORPUSCULAR VOLUME 84.8 fL (79-99); MONOCYTES % (AUTO) 8.6 % (3.0-13.0); NEUTROPHILS % (AUTO) 78.3 % (40.0-77.0); PLATELET COUNT (AUTO) 256 K/uL (130-400); RED BLOOD CELL COUNT(AUTO) 3.63 MIL/uL (4.50-6.20); RED CELL DISTRIBUTION WIDTH 14.5 % (11.0-15.5); WHITE BLOOD COUNT (AUTO) 6.3 K/uL (4.8-10.8)
[2019-06-03 04:59] LABS: CARBON DIOXIDE 24 mmol/L (21-32); CHLORIDE 102 mmol/L (101-111); GLOMERULAR FILTR. RATE CALC 79 mL/min (>60); GLUCOSE,RANDOM 174 mg/dL (70-105); SODIUM SERUM 137 mmol/L (136-145); UREA NITROGEN, BLOOD 33 mg/dL (7-18)
[2019-06-03] MEDS: INSULIN HUMULIN R 100 UNIT/ML 3ML SQ SCH (06:39)
[2019-06-03] MEDS: INSULIN LISPRO 100 UNIT/ML 3ML SQ SCH ×6 (06:47→22:24)
[2019-06-03] MEDS: FLUTICASONE PROPIONATE 50MCG/SPRAY 16 GM BOTTLE EN SCH (09:00)
[2019-06-03] MEDS: AMLODIPINE BESYLATE 2.5 MG TAB PO SCH ×2 (09:06→20:31)
[2019-06-03] MEDS: ATORVASTATIN CALCIUM 40 MG TABLET PO SCH ×2 (09:06→20:31)
[2019-06-03] MEDS: PREGABALIN 75 MG CAPSULE PO SCH ×3 (09:06→20:31)
[2019-06-03] MEDS: HYDRALAZINE HCL 25 MG TABLET PO SCH ×2 (09:07→13:55)
[2019-06-03] MEDS: DOCUSATE SODIUM 100 MG CAP PO SCH ×2 (09:07→20:32)
[2019-06-03] MEDS: SENNOSIDES 8.6 MG TABLET PO SCH ×2 (09:07→20:32)
[2019-06-03] MEDS: ASPIRIN 81 MG EC TAB PO SCH (09:07)
[2019-06-03] MEDS: LUBIPROSTONE 24 MCG CAP PO SCH ×3 (09:07→17:28)
[2019-06-03] MEDS: MINOXIDIL 2.5 MG TAB PO SCH ×2 (09:07→20:32)
[2019-06-03] MEDS: MULTIVITAMIN TABLET PO SCH (09:07)
[2019-06-03] MEDS: DOXAZOSIN MESYLATE 2 MG TABLET PO SCH (09:07)
[2019-06-03] MEDS: BACLOFEN 10 MG TABLET PO SCH ×2 (09:07→20:31)
[2019-06-03] MEDS: DEXAMETHASONE SOD PHOSPHATE 4 MG/ML 1ML VIAL IVP SCH ×3 (09:08→20:31)
[2019-06-03] MEDS: FAMOTIDINE/PF 20 MG/2 ML VIAL IV SCH ×2 (09:08→20:31)
[2019-06-03] MEDS: LIDOCAINE 5% TOPICAL PATCH TP SCH (09:08)
--- NOTE | 2019-06-03 09:47 | NUR ---
DR. Yomi BRAVO IN ROOM SPEAKING WITH PT. RE:ATRIAL FIBRILLATION AND RECOMMENDATION FOR PPM INSERTION.
[2019-06-03] MEDS ORDERED: LOSARTAN 50 MG TABLET PO SCH (10:15)
[2019-06-03] MEDS: ALBUTEROL SULFATE 0.083% 2.5 MG/3 ML INH IH SCH ×3 (11:29→23:24)
[2019-06-03] MEDS ORDERED: SODIUM CHLORIDE 0.9% 250 ML IV SCH (13:45)
[2019-06-03] MEDS ORDERED: SODIUM CHLORIDE 0.9% 250 ML IV ONE (14:05)
[2019-06-04] VITALS (7 sets, daily range): BP systolic 119–139; BP diastolic 53–68
[2019-06-04 04:54] LABS: CREATININE 1.3 mg/dL (0.5-1.5); POTASSIUM 4.1 mmol/L (3.5-5.1)
[2019-06-04] MEDS ORDERED: BACLOFEN 10 MG TABLET PO SCH (05:00)
[2019-06-04] MEDS: INSULIN LISPRO 100 UNIT/ML 3ML SQ SCH ×6 (06:04→16:56)
[2019-06-04] MEDS: ALBUTEROL SULFATE 0.083% 2.5 MG/3 ML INH IH SCH (06:56)
[2019-06-04] MEDS: LUBIPROSTONE 24 MCG CAP PO SCH ×2 (08:31→16:53)
[2019-06-04] MEDS ORDERED: SODIUM CHLORIDE 0.9% 250 ML IV SCH (09:15)
[2019-06-04] MEDS ORDERED: OLME20TA22 PO (09:19)
[2019-06-04] MEDS ORDERED: ATOR40TA71 PO (09:27)
[2019-06-04] MEDS: LIDOCAINE 5% TOPICAL PATCH TP SCH (10:36)
[2019-06-04] MEDS: FAMOTIDINE/PF 20 MG/2 ML VIAL IV SCH (10:36)
[2019-06-04] MEDS: ASPIRIN 81 MG EC TAB PO SCH (10:37)
[2019-06-04] MEDS: AMLODIPINE BESYLATE 2.5 MG TAB PO SCH (10:37)
[2019-06-04] MEDS: MINOXIDIL 2.5 MG TAB PO SCH (10:37)
[2019-06-04] MEDS: DOXAZOSIN MESYLATE 2 MG TABLET PO SCH (10:37)
[2019-06-04] MEDS: ATORVASTATIN CALCIUM 40 MG TABLET PO SCH (10:38)
[2019-06-04] MEDS: SENNOSIDES 8.6 MG TABLET PO SCH (10:38)
[2019-06-04] MEDS: DOCUSATE SODIUM 100 MG CAP PO SCH (10:38)
[2019-06-04] MEDS: MULTIVITAMIN TABLET PO SCH (10:38)
[2019-06-04] MEDS: HYDRALAZINE HCL 25 MG TABLET PO SCH ×2 (10:43→16:52)
[2019-06-04] MEDS: PREGABALIN 75 MG CAPSULE PO SCH ×2 (10:43→16:52)
[2019-06-04] MEDS ORDERED: GLIP5TAB11 PO (10:44)
[2019-06-04] MEDS ORDERED: HYDR-4060 PO (10:44)
[2019-06-04] MEDS ORDERED: LIDOP TP (10:44)
[2019-06-04] MEDS: FLUTICASONE PROPIONATE 50MCG/SPRAY 16 GM BOTTLE EN SCH (10:52)
[2019-06-04] MEDS: HYDROCODONE/ACETAMINOPHEN 5/325 MG TAB PO PRN (17:41)
== END 2019-06-04 16:45 | disposition home or self-care (01) | DRG 552 ==
LOC: EDH 16:31 → EDHIP 21:08 → 4AH 22:01 → 2CH 05-28 03:42 → 2DH 05-31 16:13
PROVIDERS: ADMIT Family Medicine; ATTEND Family Medicine
PROC: 5A09357 Assistance with Respiratory Ventilation, Less than 24 Consecutive Hours, Continuous Positive Airway Pressure (ICD-10-PCS; principal; 2019-05-29)
PROC: 5A09357 Assistance with Respiratory Ventilation, Less than 24 Consecutive Hours, Continuous Positive Airway Pressure (ICD-10-PCS; 2019-05-30)
PROC: 5A09357 Assistance with Respiratory Ventilation, Less than 24 Consecutive Hours, Continuous Positive Airway Pressure (ICD-10-PCS; 2019-05-31)
DX: M51.26 Other intervertebral disc displacement, lumbar region (principal); I24.9 Acute ischemic heart disease, unspecified; I31.3 Pericardial effusion (noninflammatory); N17.9 Acute kidney failure, unspecified; Q21.0 Ventricular septal defect; I10 Essential (primary) hypertension; E78.5 Hyperlipidemia, unspecified; I25.10 Atherosclerotic heart disease of native coronary artery without angina pectoris; I48.0 Paroxysmal atrial fibrillation; M41.9 Scoliosis, unspecified; M48.00 Spinal stenosis, site unspecified; G47.33 Obstructive sleep apnea (adult) (pediatric); J45.909 Unspecified asthma, uncomplicated; I45.5 Other specified heart block; E11.9 Type 2 diabetes mellitus without complications; I11.9 Hypertensive heart disease without heart failure; E66.01 Morbid (severe) obesity due to excess calories; Z68.34 Body mass index [BMI] 34.0-34.9, adult; Z95.5 Presence of coronary angioplasty implant and graft; Z98.84 Bariatric surgery status; Z79.82 Long term (current) use of aspirin; Z79.899 Other long term (current) drug therapy; Z83.3 Family history of diabetes mellitus; Z82.49 Family history of ischemic heart disease and other diseases of the circulatory system
CPT/HCPCS: 36415; 71046; 72131; 72148; 74177; 76770; 80048; 80053; 80061; 81001; 82150; 82550; 82570; 82948; 83036; 83690; 83735; 83880; 84100; 84145; 84300; 84443; 84484; 85025; 85027; 85610; 85651; 85730; 86140; 93005; 93306; 93975; 94640; 94660; 94664; 97039; G0378; J0360; J1100; J1170; J1650; J1815; J1885; J2060; J2405; J3370; J3490; J7030; Q9967

== ENCOUNTER → 2020-04-27 | Outpatient (CLI) | payer MEDICARE ==
[~2020-04-27] MED LIST changes: -ACET250T28 PO; -AMLO10TA7 PO; +AMLO2.5T4 PO; -COLE1TAB2 PO; -DIPH1TAB PO; -ELUX100T PO; -FURO20TA6 PO; +HYDR-4060 PO; +HYDR-4154 PO; -INSLAN SQ; +LIDOP TP; -MECO10002 SL; -MEGE40L PO; -METF-446 PO; -METO-408 PO; +MINO2.5T3 PO; +OLME20TA22 PO; -ONDA-104 PO; -PIND10TA2 PO; -POTA99TA21 PO; -Prasugrel Hcl PO
== END | disposition home or self-care (01) ==
LOC: RAH 14:32
PROVIDERS: ATTEND Internal Medicine
DX: M51.34 Other intervertebral disc degeneration, thoracic region (principal); M51.36 Other intervertebral disc degeneration, lumbar region; K29.70 Gastritis, unspecified, without bleeding; Z90.49 Acquired absence of other specified parts of digestive tract
CPT/HCPCS: 72070; 72100; 74018

== ENCOUNTER → 2020-12-20 | Outpatient (CLI) | payer MEDICARE ==
[2020-12-20 10:20] LABS: BASOPHILS % (AUTO) 1.5 % (0.0-5.0); EOSINOPHILS % (AUTO) 2.4 % (0.0-8.0); HEMATOCRIT 31.7 % (42-54); LYMPHOCYTES % (AUTO) 17.5 % (21.0-51.0); MEAN CORPUSCULAR HEMOGLOBIN 29.9 pg (27.0-33.0); MEAN CORPUSCULAR HGB CONC 32.8 g/dL (32.0-36.0); MEAN CORPUSCULAR VOLUME 91.1 fL (79-99); NEUTROPHILS % (AUTO) 70.4 % (40.0-77.0); PLATELET COUNT (AUTO) 232 K/uL (130-400); RED BLOOD CELL COUNT(AUTO) 3.48 MIL/uL (4.50-6.20); RED CELL DISTRIBUTION WIDTH 14.1 % (11.0-15.5); WHITE BLOOD COUNT (AUTO) 4.6 K/uL (4.8-10.8)
[2020-12-20 10:41] LABS: ALBUMIN 3.3 g/dL (3.5-5.0); BILIRUBIN,TOTAL 0.5 mg/dL (0.2-1.0); TOTAL PROTEIN, SERUM 6.8 g/dL (6.0-8.3)
== END | disposition home or self-care (01) ==
LOC: LAB 09:13
PROVIDERS: ATTEND Internal Medicine Gastroenterology
DX: R14.0 Abdominal distension (gaseous) (principal); R10.12 Left upper quadrant pain
CPT/HCPCS: 36415; 80053; 82150; 83690; 85025

== ENCOUNTER → 2020-12-24 | Outpatient (CLI) | payer MEDICARE | END | disposition home or self-care (01) | LOC: CANSCHCLI → RAH 13:05 | PROVIDERS: ATTEND Internal Medicine | DX: R91.8 Other nonspecific abnormal finding of lung field (principal); I25.10 Atherosclerotic heart disease of native coronary artery without angina pectoris; J98.11 Atelectasis; K64.8 Other hemorrhoids; Z98.84 Bariatric surgery status | CPT/HCPCS: 71250 ==

== ENCOUNTER 2021-02-24 15:51 | Inpatient (IN) | payer MEDICARE ==
[~2021-02-24] VITALS: Ht 177.8 cm; Wt 99.2 kg
[2021-02-24 16:28] LABS: EOSINOPHILS % (AUTO) 0.6 % (0.0-8.0); HEMATOCRIT 23.7 % (42-54); LYMPHOCYTES % (AUTO) 11.8 % (21.0-51.0); MEAN CORPUSCULAR HEMOGLOBIN 30.4 pg (27.0-33.0); MEAN CORPUSCULAR HGB CONC 32.1 g/dL (32.0-36.0); MEAN CORPUSCULAR VOLUME 94.8 fL (79-99); MONOCYTES % (AUTO) 5.8 % (3.0-13.0); NEUTROPHILS % (AUTO) 80.2 % (40.0-77.0); PLATELET COUNT (AUTO) 243 K/uL (130-400); RED CELL DISTRIBUTION WIDTH 14.5 % (11.0-15.5)
[2021-02-24 16:36] LABS: CREATININE 1.5 mg/dL (0.5-1.5); POTASSIUM 3.4 mmol/L (3.5-5.1)
[2021-02-24 16:45] LABS: B-TYPE NATRIURETIC PEPTIDE 270 pg/mL (0-100)
[2021-02-24 16:50] LABS: ALBUMIN 3.1 g/dL (3.5-5.0); BILIRUBIN,TOTAL 1.3 mg/dL (0.2-1.0); TOTAL PROTEIN, SERUM 7.1 g/dL (6.0-8.3)
[2021-02-24] MEDS ORDERED: IOHEXOL 350 MG/ML 100ML INFUS..BTL IV ONE (17:01)
[2021-02-24] MEDS ORDERED: ASPIRIN 325MG TAB PO ONE (18:00)
[2021-02-24] MEDS ORDERED: FUROSEMIDE 40MG VIAL IV ONE (18:00)
[2021-02-24] MEDS ORDERED: ONDANSETRON 4MG INJ IV PRN (19:30)
[2021-02-24 20:24] LABS: % IRON SATURATION 11.5 % (30-44)
[2021-02-24] MEDS: NITROGLYCERIN 1GM OINT 1 INCH/1GM TD SCH (20:54)
[2021-02-24] MEDS ORDERED: HEPARIN 5,000 UNIT VIAL SQ SCH (21:00)
[2021-02-24] MEDS: INSULIN HUMULIN R 100 UNIT/ML 3ML SQ SCH (21:00)
[2021-02-24] MEDS: IPRATROPIUM/ALBUTEROL SULFATE 3 ML SOLUTION IH SCH (23:41)
[2021-02-25] MEDS ORDERED: ATOR40TA71 PO (03:18)
[2021-02-25] MEDS ORDERED: GABA-529 PO (03:18)
[2021-02-25] MEDS ORDERED: OMEP20CA12 PO (03:18)
[2021-02-25] MEDS ORDERED: ASPI-1197 PO (03:18)
[2021-02-25] MEDS ORDERED: OLMESARTAN (03:18)
[2021-02-25] MEDS ORDERED: CLON0.1T PO (03:18)
[2021-02-25] MEDS ORDERED: DOXA8TAB81 PO (03:18)
[2021-02-25] MEDS ORDERED: MINO10TA3 PO (03:18)
[2021-02-25] MEDS ORDERED: HYDR100T27 PO (03:18)
[2021-02-25] MEDS ORDERED: AMLO2.5T4 PO (03:18)
[2021-02-25] MEDS: NITROGLYCERIN 1GM OINT 1 INCH/1GM TD SCH ×3 (03:20→22:11)
[2021-02-25 03:50] VITALS: BP 146/70
[2021-02-25] MEDS ORDERED: HEPARIN 25,000 UNITS/250ML D5W 250 ML IV SCH (05:00)
[2021-02-25] MEDS ORDERED: HEPARIN 5,000 UNIT VIAL IV PRN (05:30)
[2021-02-25 06:13] LABS: EOSINOPHILS % (AUTO) 1.3 % (0.0-8.0); HEMATOCRIT 22.4 % (42-54); MEAN CORPUSCULAR HEMOGLOBIN 29.8 pg (27.0-33.0); MEAN CORPUSCULAR HGB CONC 31.3 g/dL (32.0-36.0); MEAN CORPUSCULAR VOLUME 95.3 fL (79-99); MONOCYTES % (AUTO) 7.2 % (3.0-13.0); NEUTROPHILS % (AUTO) 80.2 % (40.0-77.0); PLATELET COUNT (AUTO) 254 K/uL (130-400); RED BLOOD CELL COUNT(AUTO) 2.35 MIL/uL (4.50-6.20); RED CELL DISTRIBUTION WIDTH 14.3 % (11.0-15.5); WHITE BLOOD COUNT (AUTO) 6.3 K/uL (4.8-10.8)
[2021-02-25 06:22] LABS: INR 1.14 (0.85-1.15); PROTHROMBIN TIME 12.3 SEC (9.6-11.6)
[2021-02-25 06:23] LABS: CREATININE 1.4 mg/dL (0.5-1.5); MAGNESIUM 2.1 mg/dL (1.80-2.40); PHOSPHORUS 3.5 mg/dL (2.5-4.9); POTASSIUM 3.3 mmol/L (3.5-5.1)
[2021-02-25 06:28] LABS: HEMOGLOBIN A1C 5.3 % (4.0-6.0)
[2021-02-25] MEDS: INSULIN HUMULIN R 100 UNIT/ML 3ML SQ SCH ×4 (07:02→21:00)
[2021-02-25] MEDS: IPRATROPIUM/ALBUTEROL SULFATE 3 ML SOLUTION IH SCH ×2 (07:18→11:50)
[2021-02-25 08:04] VITALS: BP 144/77
[2021-02-25] MEDS ORDERED: DOXYCYCLINE 100MG IVPB (VIAL) IVPB SCH (08:30)
[2021-02-25] MEDS ORDERED: CEFTRIAXONE 1G VIAL IVP SCH (08:30)
[2021-02-25] MEDS ORDERED: 0.9% NACL 250ML IVPB SCH (08:30)
[2021-02-25 08:53] LABS: HEMATOCRIT 21.7 % (42-54)
[2021-02-25] MEDS ORDERED: FAMOTIDINE 20MG TAB PO SCH (09:00)
[2021-02-25] MEDS ORDERED: PNEUMOCOCCAL VACCINE POLYVALENT 0.5 ML/VIAL [PPV] IM ONE (09:00)
[2021-02-25] MEDS ORDERED: COMPOUND IV MISC 1 EACH IVSOLN MISC PRN (09:00)
[2021-02-25] MEDS: EPOETIN ALFA-EPBX (NON-ESRD) 10,000 UNIT/ML VIAL SQ SCH (10:10)
[2021-02-25] MEDS: KCL 20 MEQ ERTAB PO SCH (10:10)
[2021-02-25] MEDS: DOXYCYCLINE 100MG+NS 250ML 250 ML IV SCH ×2 (10:11→22:11)
[2021-02-25] MEDS: FUROSEMIDE 40MG VIAL IV SCH ×2 (10:11→18:35)
[2021-02-25 10:12] LABS: APPEARANCE,URINE Clear (CLEAR); BILIRUBIN,URINE Negative (NEGATIVE); COLOR,URINE Yellow (YELLOW); GLUCOSE, URINE (UA) Negative (NEGATIVE); KETONES,URINE Negative (NEGATIVE); LEUKOCYTE ESTERASE ,URINE Trace (NEGATIVE); NITRATE,URINE Negative (NEGATIVE); OCCULT BLOOD,URINE Large (NEGATIVE); PH,URINE 5.5 (5.0-8.0); PROTEIN,URINE POS 1+ mg/dL (NEGATIVE)
[2021-02-25] MEDS: IRON SUCROSE COMPLEX 300 MG in 0.9%NACL 50ML 50 ML IV SCH (10:12)
[2021-02-25] MEDS: METOPROLOL TARTRATE 25 MG TAB PO SCH ×2 (10:13→22:11)
[2021-02-25 11:03] LABS: BACTERIA,URINE Rare /HPF (None Seen); RBC,URINE >100 /HPF (0-1); SQUAMOUS EPITHELIAL CELL,UR Rare /HPF (0-2); WBC,URINE 0-1 /HPF (0-1)
[2021-02-25 11:52] VITALS: BP 151/59
[2021-02-25 14:07] LABS: HEMATOCRIT 21.5 % (42-54)
[2021-02-25 16:00] VITALS: BP 154/77
[2021-02-25] MEDS ORDERED: CLONIDINE HCL 0.1 MG TABLET PO PRN (16:00)
[2021-02-25] MEDS: MINOXIDIL 2.5 MG TAB PO SCH (18:35)
[2021-02-25] MEDS: AMLODIPINE 2.5 MG TAB PO SCH (18:35)
[2021-02-25] MEDS: ALBUTEROL INHALER 90MCG/INH IH SCH ×3 (18:35→22:12)
[2021-02-25 19:20] VITALS: BP 150/72
[2021-02-25 21:44] LABS: HEMATOCRIT 22.7 % (42-54)
[2021-02-25] MEDS: DOXAZOSIN MESYLATE 2 MG TABLET PO SCH (22:10)
[2021-02-25] MEDS: PANTOPRAZOLE 40 MG/VIAL IVP SCH (22:11)
[2021-02-25 23:24] VITALS: BP 123/68
[2021-02-26] MEDS: FUROSEMIDE 40MG VIAL IV SCH (01:38)
[2021-02-26] MEDS: ALBUTEROL INHALER 90MCG/INH IH SCH ×6 (02:00→22:00)
[2021-02-26] MEDS: NITROGLYCERIN 1GM OINT 1 INCH/1GM TD SCH (03:30)
[2021-02-26 03:58] VITALS: BP 126/64
[2021-02-26 07:00] VITALS: BP 128/64
[2021-02-26] MEDS: INSULIN HUMULIN R 100 UNIT/ML 3ML SQ SCH ×3 (07:30→21:00)
[2021-02-26] MEDS: EPOETIN ALFA-EPBX (NON-ESRD) 10,000 UNIT/ML VIAL SQ SCH (08:30)
[2021-02-26 09:08] LABS: HEMATOCRIT 22.6 % (42-54)
[2021-02-26 09:16] LABS: CREATININE 1.6 mg/dL (0.5-1.5); POTASSIUM 3.1 mmol/L (3.5-5.1)
[2021-02-26] MEDS: DOXYCYCLINE 100MG+NS 250ML 250 ML IV SCH ×2 (10:20→22:09)
[2021-02-26] MEDS: CEFTRIAXONE 2GM VIAL IVP SCH (10:20)
[2021-02-26] MEDS: IRON SUCROSE COMPLEX 300 MG in 0.9%NACL 50ML 50 ML IV SCH (10:20)
[2021-02-26] MEDS: PANTOPRAZOLE 40 MG/VIAL IVP SCH ×2 (10:21→22:09)
[2021-02-26] MEDS: DOXAZOSIN MESYLATE 2 MG TABLET PO SCH ×2 (10:29→22:08)
[2021-02-26] MEDS: METOPROLOL TARTRATE 25 MG TAB PO SCH ×2 (10:30→22:09)
[2021-02-26] MEDS: LOSARTAN 100 MG TABLET PO SCH (10:31)
[2021-02-26] MEDS: MINOXIDIL 2.5 MG TAB PO SCH (10:32)
[2021-02-26] MEDS: AMLODIPINE 2.5 MG TAB PO SCH (10:32)
[2021-02-26] MEDS: ISOSORBIDE MONO 30MG SR TAB PO SCH (10:34)
[2021-02-26] MEDS: KCL 20 MEQ ERTAB PO SCH (10:37)
[2021-02-26 11:00] VITALS: BP 136/66
[2021-02-26 14:57] LABS: HEMATOCRIT 20.9 % (42-54)
[2021-02-26 16:00] VITALS: BP 112/59
[2021-02-26] MEDS ORDERED: DOCUSATE SODIUM 100 MG CAP PO SCH (16:30)
[2021-02-26] MEDS ORDERED: POLYETHYLENE GLYCOL 3350 17 GM POWD.PACK PO ONE (16:30)
[2021-02-26 19:47] VITALS: BP 119/55
[2021-02-26] MEDS ORDERED: 0.9% NACL 250ML 250 ML ONE (21:49)
[2021-02-26] MEDS: ATORVASTATIN 40 MG TABLET PO SCH (22:08)
[2021-02-26] MEDS ORDERED: ACETAMINOPHEN 325 MG TAB ONE (22:15)
[2021-02-26 23:41] VITALS: BP 108/52
[2021-02-27] MEDS ORDERED: 0.9% NACL 250ML 250 ML ONE ×3 (00:13→21:29)
[2021-02-27 03:59] VITALS: BP 103/55
[2021-02-27 04:33] LABS: HEMATOCRIT 24.4 % (42-54)
[2021-02-27 04:49] LABS: CREATININE 1.5 mg/dL (0.5-1.5); POTASSIUM 3.6 mmol/L (3.5-5.1)
[2021-02-27] MEDS: INSULIN HUMULIN R 100 UNIT/ML 3ML SQ SCH ×4 (06:41→21:00)
[2021-02-27 07:00] VITALS: BP 144/67
[2021-02-27] MEDS: ALBUTEROL INHALER 90MCG/INH IH SCH ×4 (10:00→22:00)
[2021-02-27] MEDS ORDERED: PNEUMOCOCCAL VACCINE POLYVALENT 0.5 ML/VIAL [PPV] ONE (10:45)
[2021-02-27 11:00] VITALS: BP 149/73
[2021-02-27] MEDS: IRON SUCROSE COMPLEX 300 MG in 0.9%NACL 50ML 50 ML IV SCH (11:02)
[2021-02-27] MEDS: PANTOPRAZOLE 40 MG/VIAL IVP SCH ×2 (11:02→21:38)
[2021-02-27] MEDS: CEFTRIAXONE 2GM VIAL IVP SCH (11:02)
[2021-02-27] MEDS: DOXYCYCLINE 100MG+NS 250ML 250 ML IV SCH ×2 (11:02→21:52)
[2021-02-27] MEDS: ISOSORBIDE MONO 30MG SR TAB PO SCH (11:03)
[2021-02-27] MEDS: LOSARTAN 100 MG TABLET PO SCH (11:03)
[2021-02-27] MEDS: METOPROLOL TARTRATE 25 MG TAB PO SCH ×2 (11:04→21:37)
[2021-02-27] MEDS: MINOXIDIL 2.5 MG TAB PO SCH (11:04)
[2021-02-27] MEDS: AMLODIPINE 2.5 MG TAB PO SCH (11:09)
[2021-02-27] MEDS: DOXAZOSIN MESYLATE 2 MG TABLET PO SCH ×2 (11:19→21:38)
[2021-02-27] MEDS ORDERED: TRAMADOL HCL 50 MG TABLET PO PRN (13:00)
[2021-02-27] MEDS: LACTULOSE 20 GM/30 ML UDCUP PO SCH ×2 (13:30→21:38)
[2021-02-27 16:00] VITALS: BP 110/55
[2021-02-27] MEDS: LEVOFLOXACIN 500 MG/D5W 100 ML 100 ML IV SCH (17:42)
[2021-02-27 20:00] VITALS: BP 112/54
[2021-02-27] MEDS: ATORVASTATIN 40 MG TABLET PO SCH (21:37)
[2021-02-28] VITALS (7 sets, daily range): BP systolic 110–151; BP diastolic 58–71
[2021-02-28] MEDS: ALBUTEROL INHALER 90MCG/INH IH SCH ×5 (02:00→21:44)
[2021-02-28] MEDS: INSULIN HUMULIN R 100 UNIT/ML 3ML SQ SCH ×4 (06:31→20:37)
[2021-02-28 07:16] LABS: BASOPHILS % (AUTO) 0.6 % (0.0-5.0); EOSINOPHILS % (AUTO) 2.9 % (0.0-8.0); HEMATOCRIT 23.8 % (42-54); LYMPHOCYTES % (AUTO) 8.7 % (21.0-51.0); MEAN CORPUSCULAR HEMOGLOBIN 30.5 pg (27.0-33.0); MEAN CORPUSCULAR HGB CONC 32.8 g/dL (32.0-36.0); MONOCYTES % (AUTO) 6.4 % (3.0-13.0); NEUTROPHILS % (AUTO) 80.8 % (40.0-77.0); PLATELET COUNT (AUTO) 245 K/uL (130-400); RED BLOOD CELL COUNT(AUTO) 2.56 MIL/uL (4.50-6.20); RED CELL DISTRIBUTION WIDTH 14.6 % (11.0-15.5)
[2021-02-28 08:08] LABS: CREATININE 1.4 mg/dL (0.5-1.5); POTASSIUM 3.3 mmol/L (3.5-5.1)
[2021-02-28] MEDS: PANTOPRAZOLE 40 MG/VIAL IVP SCH ×2 (10:28→21:43)
[2021-02-28] MEDS: DOXYCYCLINE 100MG+NS 250ML 250 ML IV SCH ×2 (10:28→21:43)
[2021-02-28] MEDS: MINOXIDIL 2.5 MG TAB PO SCH (10:29)
[2021-02-28] MEDS: AMLODIPINE 2.5 MG TAB PO SCH (10:29)
[2021-02-28] MEDS: METOPROLOL TARTRATE 25 MG TAB PO SCH ×2 (10:29→21:43)
[2021-02-28] MEDS: LOSARTAN 100 MG TABLET PO SCH (10:29)
[2021-02-28] MEDS: ISOSORBIDE MONO 30MG SR TAB PO SCH (10:29)
[2021-02-28] MEDS: LACTULOSE 20 GM/30 ML UDCUP PO SCH ×3 (10:29→21:43)
[2021-02-28] MEDS: FUROSEMIDE 20 MG TABLET PO SCH (10:32)
[2021-02-28] MEDS: KCL 20 MEQ ERTAB PO SCH (10:33)
[2021-02-28] MEDS: DOXAZOSIN MESYLATE 2 MG TABLET PO SCH ×2 (10:35→21:43)
[2021-02-28] MEDS: LEVOFLOXACIN 500 MG/D5W 100 ML 100 ML IV SCH (17:18)
[2021-02-28] MEDS: ATORVASTATIN 40 MG TABLET PO SCH (21:43)
[2021-02-28] MEDS: ACETAMINOPHEN 325 MG TAB PO PRN (21:53)
[2021-03-01] VITALS (14 sets, daily range): BP systolic 88–163; BP diastolic 44–67
[2021-03-01] MEDS: ALBUTEROL INHALER 90MCG/INH IH SCH ×6 (02:25→23:55)
[2021-03-01 05:02] LABS: INR 1.15 (0.85-1.15); PROTHROMBIN TIME 12.4 SEC (9.6-11.6)
[2021-03-01 05:06] LABS: CREATININE 1.5 mg/dL (0.5-1.5); POTASSIUM 3.6 mmol/L (3.5-5.1)
[2021-03-01 05:16] LABS: BASOPHILS % (AUTO) 0.7 % (0.0-5.0); EOSINOPHILS % (AUTO) 3.3 % (0.0-8.0); LYMPHOCYTES % (AUTO) 10.7 % (21.0-51.0); MEAN CORPUSCULAR HEMOGLOBIN 31.1 pg (27.0-33.0); MEAN CORPUSCULAR HGB CONC 32.6 g/dL (32.0-36.0); MEAN CORPUSCULAR VOLUME 95.4 fL (79-99); NEUTROPHILS % (AUTO) 77.8 % (40.0-77.0); PLATELET COUNT (AUTO) 265 K/uL (130-400); RED BLOOD CELL COUNT(AUTO) 2.41 MIL/uL (4.50-6.20); RED CELL DISTRIBUTION WIDTH 14.6 % (11.0-15.5); WHITE BLOOD COUNT (AUTO) 7.7 K/uL (4.8-10.8)
[2021-03-01 05:22] LABS: B-TYPE NATRIURETIC PEPTIDE 303 pg/mL (0-100)
[2021-03-01] MEDS: INSULIN HUMULIN R 100 UNIT/ML 3ML SQ SCH ×4 (06:10→21:00)
[2021-03-01] MEDS ORDERED: 0.9%NACL 1000ML 0 ML IV ONE (06:16)
[2021-03-01] MEDS: PANTOPRAZOLE 40 MG/VIAL IVP SCH ×2 (07:18→22:19)
[2021-03-01] MEDS: DOXYCYCLINE 100MG+NS 250ML 250 ML IV SCH ×2 (07:19→22:20)
[2021-03-01] MEDS: LACTULOSE 20 GM/30 ML UDCUP PO SCH (09:00)
[2021-03-01] MEDS ORDERED: POTASSIUM CHLORIDE 20 MEQ/100 ML BAG IV SCH (09:30)
[2021-03-01] MEDS: LOSARTAN 100 MG TABLET PO SCH (09:50)
[2021-03-01] MEDS: ISOSORBIDE MONO 30MG SR TAB PO SCH (09:50)
[2021-03-01] MEDS: KCL 20 MEQ ERTAB PO SCH (09:50)
[2021-03-01] MEDS: METOPROLOL TARTRATE 25 MG TAB PO SCH ×2 (09:50→22:19)
[2021-03-01] MEDS: AMLODIPINE 2.5 MG TAB PO SCH (09:50)
[2021-03-01] MEDS: DOXAZOSIN MESYLATE 2 MG TABLET PO SCH ×2 (09:50→22:19)
[2021-03-01] MEDS: FUROSEMIDE 20 MG TABLET PO SCH (09:51)
[2021-03-01] MEDS: MINOXIDIL 2.5 MG TAB PO SCH (09:51)
[2021-03-01] MEDS ORDERED: LACTULOSE 20 GM/30 ML UDCUP PO PRN (10:00)
[2021-03-01] MEDS ORDERED: EPOETIN ALFA-EPBX (NON-ESRD) 10,000 UNIT/ML VIAL SQ SCH (10:00)
[2021-03-01] MEDS: CYANOCOBALAMIN (VITAMIN B-12) 1000 MCG/ML 1ML VIAL IM SCH (12:00)
[2021-03-01] MEDS ORDERED: SUCCINYLCHOLINE 200MG/10ML SYR ONE (12:54)
[2021-03-01] MEDS ORDERED: PROPOFOL 10 MG/ML 20ML VIAL IV ONE (12:54)
[2021-03-01] MEDS ORDERED: MIDAZOLAM HCL 1 MG/ML 2ML VIAL ONE (13:32)
[2021-03-01] MEDS ORDERED: GLYCOPYRROLATE 0.2 MG/ML 5 ML VIAL ONE (14:09)
[2021-03-01] MEDS: LEVOFLOXACIN 500 MG/D5W 100 ML 100 ML IV SCH (17:02)
[2021-03-01 17:11] LABS: COLOR,BODY FLUID PINK (LT YELLOW); SPECIMENTYPE,BODY FLUID LAVAGE
[2021-03-01 17:12] LABS: APPEARANCE BODY FLUID CLOUDY (CLEAR); BODY FLUID WBC 399 /cu. mm.; TOTAL VOLUME,BODY FLUID 10 mL
[2021-03-01 17:13] LABS: BODY FLUID RBC 5165 /cu. mm.
[2021-03-01] MEDS ORDERED: KCL 20 MEQ ERTAB PO SCH ×2 (18:00→22:00)
[2021-03-01] MEDS: ACETAMINOPHEN 325 MG TAB PO PRN (18:30)
[2021-03-01 21:27] LABS: BF LYMPHOCYTE 4 %; BF MONOCYTE 1 %
[2021-03-01] MEDS: ATORVASTATIN 40 MG TABLET PO SCH (22:19)
[2021-03-02] MEDS: ALBUTEROL INHALER 90MCG/INH IH SCH ×4 (02:00→13:56)
[2021-03-02 04:14] VITALS: BP 123/71
[2021-03-02 05:09] LABS: BASOPHILS % (AUTO) 0.9 % (0.0-5.0); EOSINOPHILS % (AUTO) 2.9 % (0.0-8.0); HEMATOCRIT 23.8 % (42-54); LYMPHOCYTES % (AUTO) 11.5 % (21.0-51.0); MEAN CORPUSCULAR HEMOGLOBIN 30.8 pg (27.0-33.0); MEAN CORPUSCULAR HGB CONC 32.4 g/dL (32.0-36.0); MEAN CORPUSCULAR VOLUME 95.2 fL (79-99); MONOCYTES % (AUTO) 6.2 % (3.0-13.0); NEUTROPHILS % (AUTO) 77.9 % (40.0-77.0); PLATELET COUNT (AUTO) 280 K/uL (130-400); WHITE BLOOD COUNT (AUTO) 6.6 K/uL (4.8-10.8)
[2021-03-02 05:17] LABS: % IRON SATURATION 16.3 % (30-44)
[2021-03-02 05:32] LABS: B-TYPE NATRIURETIC PEPTIDE 363 pg/mL (0-100)
[2021-03-02 05:36] LABS: CRP QUANTITATIVE 155.4 mg/L (0.00-9.0)
[2021-03-02 06:07] LABS: ERYTHROCYTE SEDIMENTATION RATE 75 MM/HR (0-20)
[2021-03-02] MEDS: INSULIN HUMULIN R 100 UNIT/ML 3ML SQ SCH ×3 (07:30→16:26)
[2021-03-02] MEDS ORDERED: COMPOUND IV MISC 1 EACH IVSOLN MISC PRN (07:30)
[2021-03-02 08:05] VITALS: BP 143/68
[2021-03-02] MEDS ORDERED: IRON SUCROSE COMPLEX 100 MG in 0.9%NACL 50ML 50 ML IV SCH (09:00)
[2021-03-02] MEDS ORDERED: IRON SUCROSE COMPLEX 300 MG in 0.9%NACL 50ML 50 ML IV SCH (09:00)
[2021-03-02] MEDS: LOSARTAN 100 MG TABLET PO SCH (09:04)
[2021-03-02] MEDS: FUROSEMIDE 20 MG TABLET PO SCH (09:04)
[2021-03-02] MEDS: DOXAZOSIN MESYLATE 2 MG TABLET PO SCH (09:04)
[2021-03-02] MEDS: ZOSYN 3.375GM +NS 50ML IV SCH ×2 (09:04→16:23)
[2021-03-02] MEDS: METOPROLOL TARTRATE 25 MG TAB PO SCH (09:05)
[2021-03-02] MEDS: KCL 20 MEQ ERTAB PO SCH (09:05)
[2021-03-02] MEDS: MINOXIDIL 2.5 MG TAB PO SCH (09:05)
[2021-03-02] MEDS: ISOSORBIDE MONO 30MG SR TAB PO SCH (09:05)
[2021-03-02] MEDS: AMLODIPINE 2.5 MG TAB PO SCH (09:05)
[2021-03-02] MEDS: PANTOPRAZOLE 40 MG/VIAL IVP SCH (09:06)
[2021-03-02] MEDS: CYANOCOBALAMIN (VITAMIN B-12) 1000 MCG/ML 1ML VIAL IM SCH (09:06)
[2021-03-02] MEDS ORDERED: LOSA100T2 PO (11:34)
[2021-03-02] MEDS ORDERED: LEVO750T46 PO (11:34)
[2021-03-02] MEDS ORDERED: METO25 PO (11:34)
[2021-03-02] MEDS ORDERED: FURO20TA6 PO (11:34)
[2021-03-02] MEDS ORDERED: Isosorbide Mono 30MG Sr Tab PO (11:34)
[2021-03-02] MEDS ORDERED: ALBU8.5H8 IH (13:22)
[2021-03-02] MEDS ORDERED: PRED20TA3 PO (13:22)
[2021-03-02] MEDS ORDERED: SOLU-MEDROL 40MG VIAL IVP ONE (13:30)
[2021-03-02] MEDS ORDERED: EPOETIN ALFA-EPBX (NON-ESRD) 10,000 UNIT/ML VIAL SQ SCH (13:30)
[2021-03-02 16:42] VITALS: BP 108/56
== END 2021-03-02 18:41 | disposition home or self-care (01) | DRG 177 ==
LOC: EDH 15:51 → EDHIP 19:13 → 4DH 02-25 04:11 → 4CH 02-25 15:38
PROVIDERS: ADMIT Internal Medicine; ATTEND Internal Medicine
PROC: 30233N1 Transfusion of Nonautologous Red Blood Cells into Peripheral Vein, Percutaneous Approach (ICD-10-PCS; 2021-02-25)
PROC: 3E0234Z Introduction of Serum, Toxoid and Vaccine into Muscle, Percutaneous Approach (ICD-10-PCS; 2021-02-25)
PROC: 0B9G8ZX Drainage of Left Upper Lung Lobe, Via Natural or Artificial Opening Endoscopic, Diagnostic (ICD-10-PCS; principal; 2021-03-01)
PROC: 0BD58ZX Extraction of Right Middle Lobe Bronchus, Via Natural or Artificial Opening Endoscopic, Diagnostic (ICD-10-PCS; 2021-03-01)
PROC: 0BB58ZX Excision of Right Middle Lobe Bronchus, Via Natural or Artificial Opening Endoscopic, Diagnostic (ICD-10-PCS; 2021-03-01)
DX: J15.6 Pneumonia due to other Gram-negative bacteria (principal); I21.A1 Myocardial infarction type 2; J96.01 Acute respiratory failure with hypoxia; I50.33 Acute on chronic diastolic (congestive) heart failure; R04.2 Hemoptysis; J44.0 Chronic obstructive pulmonary disease with (acute) lower respiratory infection; Q21.0 Ventricular septal defect; Z16.24 Resistance to multiple antibiotics; I11.0 Hypertensive heart disease with heart failure; D50.9 Iron deficiency anemia, unspecified; E11.9 Type 2 diabetes mellitus without complications; E66.9 Obesity, unspecified; E87.6 Hypokalemia; K29.80 Duodenitis without bleeding; K63.5 Polyp of colon; R63.4 Abnormal weight loss; Z20.822 Contact with and (suspected) exposure to COVID-19; B96.1 Klebsiella pneumoniae [K. pneumoniae] as the cause of diseases classified elsewhere; E78.00 Pure hypercholesterolemia, unspecified; E78.5 Hyperlipidemia, unspecified; G47.33 Obstructive sleep apnea (adult) (pediatric); I25.10 Atherosclerotic heart disease of native coronary artery without angina pectoris; K21.9 Gastro-esophageal reflux disease without esophagitis; K29.70 Gastritis, unspecified, without bleeding; I48.0 Paroxysmal atrial fibrillation; Z96.653 Presence of artificial knee joint, bilateral; Z68.32 Body mass index [BMI] 32.0-32.9, adult; Z78.9 Other specified health status; Z79.82 Long term (current) use of aspirin; Z79.899 Other long term (current) drug therapy; Z98.84 Bariatric surgery status; Z90.49 Acquired absence of other specified parts of digestive tract; Z95.5 Presence of coronary angioplasty implant and graft; Z87.891 Personal history of nicotine dependence; Z23 Encounter for immunization; Z86.11 Personal history of tuberculosis; Z83.3 Family history of diabetes mellitus; Z82.49 Family history of ischemic heart disease and other diseases of the circulatory system; Z80.9 Family history of malignant neoplasm, unspecified
CPT/HCPCS: 31623; 31624; 31625; 36415; 36430; 71045; 71046; 71275; 80048; 80053; 81001; 82270; 82550; 82607; 82728; 82746; 82948; 83010; 83036; 83540; 83550; 83605; 83615; 83735; 83880; 84100; 84145; 84443; 84484; 85014; 85018; 85025; 85045; 85610; 85651; 85730; 86140; 86701; 86850; 86880; 86900; 86901; 86923; 87040; 87071; 87077; 87116; 87186; 87205; 87206; 87390; 87635; 87804; 89051; 90732; 93005; 94640; 94664; 94760; 99291; A4606; C9113; G0378; J0330; J0696; J1644; J1756; J1815; J1940; J1956; J2250; J2543; J2704; J2920; J3420; J3480; J3490; J7030; J7050; P9016; Q9967

== ENCOUNTER → 2021-03-22 | Outpatient (CLI) | payer MEDICARE ==
[~2021-03-22] MED LIST changes: -AEC81 PO; +ALBU8.5H8 IH; +ASPI-1197 PO; +CLON0.1T PO; -DOXA2TAB2 PO; +DOXA8TAB81 PO; -FLUT15.845 NS; +FURO20TA6 PO; -FURO40TA5 PO; +GABA-529 PO; -GLIP5TAB11 PO; -HYDR-4060 PO; -HYDR-4154 PO; +Isosorbide Mono 30MG Sr Tab PO; +LEVO750T46 PO; -LIDOP TP; +LOSA100T2 PO; +METO25 PO; +MINO10TA3 PO; -MINO2.5T3 PO; -MULT-1203 PO; -OLME20TA22 PO; +OMEP20CA12 PO; +PRED20TA3 PO
[2021-03-22 12:00] LABS: BASOPHILS % (AUTO) 0.9 % (0.0-5.0); EOSINOPHILS % (AUTO) 3.4 % (0.0-8.0); LYMPHOCYTES % (AUTO) 11.7 % (21.0-51.0); MEAN CORPUSCULAR HEMOGLOBIN 31.5 pg (27.0-33.0); MEAN CORPUSCULAR HGB CONC 31.3 g/dL (32.0-36.0); MEAN CORPUSCULAR VOLUME 100.8 fL (79-99); MONOCYTES % (AUTO) 6.7 % (3.0-13.0); NEUTROPHILS % (AUTO) 77.1 % (40.0-77.0); PLATELET COUNT (AUTO) 174 K/uL (130-400); RED BLOOD CELL COUNT(AUTO) 2.38 MIL/uL (4.50-6.20); RED CELL DISTRIBUTION WIDTH 15.8 % (11.0-15.5); WHITE BLOOD COUNT (AUTO) 4.5 K/uL (4.8-10.8)
[2021-03-22 12:03] LABS: APPEARANCE,URINE Clear (CLEAR); BILIRUBIN,URINE Negative (NEGATIVE); COLOR,URINE Yellow (YELLOW); GLUCOSE, URINE (UA) Negative (NEGATIVE); KETONES,URINE Negative (NEGATIVE); LEUKOCYTE ESTERASE ,URINE Trace (NEGATIVE); NITRATE,URINE Negative (NEGATIVE); OCCULT BLOOD,URINE Large (NEGATIVE); PH,URINE 5.5 (5.0-8.0); PROTEIN,URINE POS 1+ mg/dL (NEGATIVE)
[2021-03-22 12:10] LABS: CREATININE 2.1 mg/dL (0.5-1.5); POTASSIUM 3.8 mmol/L (3.5-5.1)
[2021-03-22 12:47] LABS: BACTERIA,URINE Few /HPF (None Seen); SQUAMOUS EPITHELIAL CELL,UR 0-2 /HPF (0-2); WBC,URINE 0-1 /HPF (0-1)
== END | disposition home or self-care (01) ==
LOC: RAH 11:01
PROVIDERS: ATTEND Internal Medicine
DX: R91.8 Other nonspecific abnormal finding of lung field (principal); J81.0 Acute pulmonary edema
CPT/HCPCS: 36415; 71046; 80048; 81001; 85025

== ENCOUNTER 2021-03-29 10:50 | Day surgery (SDC) | payer MEDICARE ==
[~2021-03-29] VITALS: Ht 177.8 cm; Wt 102.9 kg
[2021-03-29] VITALS (14 sets, daily range): BP systolic 98–145; BP diastolic 45–68
[~2021-03-29 10:50] MED LIST changes: +0.9%NACL 1000ML 1,000 ML IV ONE
[2021-03-29] MEDS ORDERED: PROPOFOL 10 MG/ML 20ML VIAL IV ONE (14:45)
[2021-05-05] MEDS ORDERED: GLIP5TAB11 PO (13:47)
[2021-05-05] MEDS ORDERED: MINO2.5T3 PO (13:47)
[2021-05-08] MEDS ORDERED: CEFD300C3 PO (12:50)
[2021-05-08] MEDS ORDERED: AMLO2.5T4 PO (12:50)
[2021-05-08] MEDS ORDERED: LOSA25TA41 PO (12:50)
[2021-05-08] MEDS ORDERED: DOXY100C5 PO (12:50)
[2021-05-08] MEDS ORDERED: DEXA6TAB PO (12:50)
[2021-05-08] MEDS ORDERED: PRED20TA3 PO (14:19)
== END 2021-03-29 16:35 | disposition home or self-care (01) ==
LOC: ENDO 10:50 → DAH 10:50 → ENDO 16:35
PROVIDERS: ATTEND Internal Medicine Gastroenterology
DX: K22.10 Ulcer of esophagus without bleeding (principal); Z20.822 Contact with and (suspected) exposure to COVID-19; K21.00 Gastro-esophageal reflux disease with esophagitis, without bleeding; K29.00 Acute gastritis without bleeding; K29.80 Duodenitis without bleeding; I10 Essential (primary) hypertension; E11.9 Type 2 diabetes mellitus without complications; I25.10 Atherosclerotic heart disease of native coronary artery without angina pectoris; Z86.010 Personal history of colon polyps; Z90.49 Acquired absence of other specified parts of digestive tract; Z98.890 Other specified postprocedural states; Z98.42 Cataract extraction status, left eye; Z83.3 Family history of diabetes mellitus; Z80.0 Family history of malignant neoplasm of digestive organs; Z87.891 Personal history of nicotine dependence; Z79.82 Long term (current) use of aspirin
CPT/HCPCS: 36415; 43235; 86677; 87635; A4215 ×2; A4221; A4222; A4223; A4606; A4620; A4663; C9803; J2704; J7030

== ENCOUNTER → 2022-09-01 | Outpatient (CLI) | payer MEDICARE ==
[~2022-09-01] MED LIST changes: -0.9%NACL 1000ML 1,000 ML IV ONE; -ALBU8.5H8 IH; +AMIO200T44 PO; -AMLO2.5T4 PO; +ATOR40TA69 PO; -ATOR40TA71 PO; -CLON0.1T PO; +CYAN1TAB72 PO; +FERR325T22 PO; -FURO20TA6 PO; +FURO40TA5 PO; -LEVO750T46 PO; -LOSA100T2 PO; -METO25 PO; -MINO10TA3 PO; +MINO2.5T3 PO; +NIFE90TA65 PO; -OMEP20CA12 PO; -PRED20TA3 PO; +SEVE800 PO; +VIT1TABL66 PO
[2022-09-01 08:43] LABS: BASOPHILS % (AUTO) 2.2 % (0.0-5.0); EOSINOPHILS % (AUTO) 1.9 % (0.0-8.0); HEMATOCRIT 29.8 % (42-54); LYMPHOCYTES % (AUTO) 16.8 % (21.0-51.0); MEAN CORPUSCULAR HEMOGLOBIN 31.3 pg (27.0-33.0); MEAN CORPUSCULAR HGB CONC 32.9 g/dL (32.0-36.0); MEAN CORPUSCULAR VOLUME 95.2 fL (79-99); MONOCYTES % (AUTO) 5.4 % (3.0-13.0); NEUTROPHILS % (AUTO) 73.4 % (40.0-77.0); PLATELET COUNT (AUTO) 162 K/uL (130-400); RED BLOOD CELL COUNT(AUTO) 3.13 MIL/uL (4.50-6.20); RED CELL DISTRIBUTION WIDTH 13.2 % (11.0-15.5); WHITE BLOOD COUNT (AUTO) 3.7 K/uL (4.8-10.8)
[2022-09-01 09:17] LABS: ALBUMIN 3.5 g/dL (3.5-5.0); CREATININE 3.7 mg/dL (0.5-1.5); POTASSIUM 3.8 mmol/L (3.5-5.1); TOTAL PROTEIN, SERUM 7.1 g/dL (6.0-8.3)
== END | disposition home or self-care (01) ==
LOC: LAB 08:14
PROVIDERS: ATTEND Internal Medicine
DX: Z00.00 Encounter for general adult medical examination without abnormal findings (principal); E11.42 Type 2 diabetes mellitus with diabetic polyneuropathy; E78.5 Hyperlipidemia, unspecified; I10 Essential (primary) hypertension
CPT/HCPCS: 36415; 80053; 83036; 84439; 84443; 85025

== ENCOUNTER → 2022-10-27 | Outpatient (CLI) | payer MEDICARE ==
[~2022-10-27] MED LIST changes: +CLON0.1T PO
[2022-10-27 09:24] LABS: BASOPHILS % (AUTO) 1.2 % (0.0-5.0); EOSINOPHILS % (AUTO) 2.5 % (0.0-8.0); HEMATOCRIT 27.9 % (42-54); LYMPHOCYTES % (AUTO) 14.1 % (21.0-51.0); MEAN CORPUSCULAR HGB CONC 33.3 g/dL (32.0-36.0); MONOCYTES % (AUTO) 5.3 % (3.0-13.0); NEUTROPHILS % (AUTO) 76.7 % (40.0-77.0); PLATELET COUNT (AUTO) 179 K/uL (130-400); RED CELL DISTRIBUTION WIDTH 13.2 % (11.0-15.5); WHITE BLOOD COUNT (AUTO) 4.3 K/uL (4.8-10.8)
[2022-10-27 09:37] LABS: CREATININE 3.4 mg/dL (0.5-1.5); POTASSIUM 3.6 mmol/L (3.5-5.1)
== END | disposition home or self-care (01) ==
LOC: RAH 08:06
PROVIDERS: ATTEND Internal Medicine
DX: I62.00 Nontraumatic subdural hemorrhage, unspecified (principal); G93.89 Other specified disorders of brain; G45.9 Transient cerebral ischemic attack, unspecified; E11.42 Type 2 diabetes mellitus with diabetic polyneuropathy; I12.9 Hypertensive chronic kidney disease with stage 1 through stage 4 chronic kidney disease, or unspecified chronic kidney disease; N18.4 Chronic kidney disease, stage 4 (severe)
CPT/HCPCS: 36415; 70450; 80048; 84153; 85025

== ENCOUNTER → 2024-08-05 | Outpatient (CLI) | payer MEDICARE ==
[~2024-08-05] MED LIST changes: +ALBU18HF7 IH; -AMIO200T44 PO; +AMIO200T68 PO; +AMOX1TAB16 PO; -ASPI-1197 PO; +ATOR-2 PO; -ATOR40TA69 PO; +BUDE10.7 IH; -CYAN1TAB72 PO; +DOXY100T2 PO; -FERR325T22 PO; +FERS325 PO; +FOLI0.8T2 PO; -GABA-529 PO; +ISOS60TA77 PO; -Isosorbide Mono 30MG Sr Tab PO; +NIFE-79 PO; -NIFE90TA65 PO; -SEVE800 PO; -VIT1TABL66 PO
--- NOTE | 2024-08-06 08:43 | HMCIMG ---
NM BONE SCAN WHOLE BODY REASON: prostate cancer. COMPARISON: None TECHNIQUE: Bone scan was performed with 24 mCi of technetium MDP through intravenous route. FINDINGS: There are bilateral knee prosthesis. Increased activities are seen in the shoulders, wrists, hips and ankles and feet bilaterally suggestive degenerative changes. There is scoliosis. No definite scintigraphic evidence of bone metastases is seen. IMPRESSION: DJD. No scintigraphic evidence of bone metastases.
== END | disposition home or self-care (01) ==
LOC: RAH 13:01
PROVIDERS: ATTEND Internal Medicine Medical Oncology
DX: C61 Malignant neoplasm of prostate (principal); M19.09 Primary osteoarthritis, other specified site; M41.9 Scoliosis, unspecified
CPT/HCPCS: 78306; A9503